=== PATIENT | female | born 1965 | race Caucasian/White ===

== ENCOUNTER → 2019-11-15 14:13 | Outpatient (BNVA) | payer BC, SELFPAY | PROVIDERS: Family Provider Nurse Practitioner; PCP Nurse Practitioner; Visit Provider Nurse Practitioner Family | DX: M79.641 Pain in right hand (principal) | CPT/HCPCS: 73130 ==

== ENCOUNTER → 2020-03-20 10:08 | Outpatient (BNVA) | payer BC, SELFPAY | PROVIDERS: Family Provider Nurse Practitioner; PCP Nurse Practitioner; Visit Provider Nurse Practitioner | DX: I10 Essential (primary) hypertension (principal); E11.65 Type 2 diabetes mellitus with hyperglycemia; M54.16 Radiculopathy, lumbar region; M10.9 Gout, unspecified; E78.2 Mixed hyperlipidemia; H60.90 Unspecified otitis externa, unspecified ear; R42 Dizziness and giddiness | CPT/HCPCS: 81000 ==

== ENCOUNTER → 2020-04-25 14:16 | Outpatient (BNVA) | payer BC, SELFPAY | PROVIDERS: Family Provider Nurse Practitioner; PCP Nurse Practitioner; Visit Provider Nurse Practitioner | DX: Z12.4 Encounter for screening for malignant neoplasm of cervix (principal); N95.2 Postmenopausal atrophic vaginitis | CPT/HCPCS: 88175 ==

== ENCOUNTER → 2020-09-03 12:16 | Outpatient (BNVA) | payer BC, SELFPAY | PROVIDERS: Family Provider Nurse Practitioner; PCP Nurse Practitioner; Visit Provider Nurse Practitioner | DX: Z11.59 Encounter for screening for other viral diseases (principal); J40 Bronchitis, not specified as acute or chronic | CPT/HCPCS: 87635 ==

== ENCOUNTER 2020-09-06 10:11 | Inpatient (IN) | payer BC, SELFPAY ==
[2020-09-06] VITALS (39 sets, daily range): BP systolic 121–156; BP diastolic 62–106; PULSE 100–121; RESP 15–39; TEMP 36.6–38.5; O2SAT 88–98; BMI 47.8
--- NOTE | 2020-09-06 10:28 | ECG_ITS ---
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
--- NOTE | 2020-09-06 10:28 | XRR_ITS ---
PROCEDURE INFORMATION: Exam: XR Chest, 1 View Exam date and time: 09/06/2020 10:30 AM Age: 54 years old Clinical indication: Shortness of breath; Additional info: SOB TECHNIQUE: Imaging protocol: XR of the chest Views: 1 view. COMPARISON: No relevant prior studies available. FINDINGS: Lungs: Moderate nonspecific bilateral pulmonary opacities most consistent with pneumonia. Pleural space: Unremarkable. No pleural effusion. No pneumothorax. Heart/Mediastinum: Unremarkable. No cardiomegaly. Bones/joints: Unremarkable. Other findings: Possible morbid obesity. XR/XR chest 1V portable [id number] IMPRESSION: Moderate nonspecific bilateral pulmonary opacities most consistent with pneumonia.
--- NOTE | 2020-09-06 10:31 | ED_ITS ---
HPI - COVID General: Chief Complaint: COVID symptoms Stated Complaint: COVID + / Experiencing all symptoms Time Seen by Provider: 09/06/20 10:14 Triage information: Has fever, cough or shortness of breath . Exposure to COVID + person last 14 days History of Present Illness: COVID 19 common symptoms: negative fever(s), chills, non-productive cough, productive cough, dyspnea, fatigue, headache(s), throat pain, nasal congestion, nausea, vomiting or diarrhea COVID 19 other sytmptoms: negative chest pain COVID Results: SARS-CoV-2 RNA (RT-PCR) Detected (NOT DETECTED) A 09/03/20 12:16 09/03/20 Review of Systems Const: Denies: fever(s), chills or fatigue Eyes: Denies: change in vision or eye discomfort ENMT: Denies: throat pain, odynophagia, nasal discharge or nasal congestion Card: Denies: chest pain, palpitations, edema, swelling of feet/ankles, dyspnea on exertion or orthopnea Resp: Denies: dyspnea, productive cough or non-productive cough GI: Denies: abdominal pain, nausea, vomiting, diarrhea, constipation or hematochezia : Denies: flank pain, dysuria or hematuria Musc: Denies: neck pain, back pain or extremity swelling Skin/Breast: Denies: rash or new lesions Neuro: Denies: headache(s), numbness in extremities or weakness in extremities PFSH ED PFSH: Medical History Controlled diabetes mellitus with hyperglycemia, without long-term current use of insulin Essential (primary) hypertension Gout Lumbar back pain with radiculopathy affecting right lower extremity Mixed hyperlipidemia Vaginitis, atrophic Surgical History History of carpal tunnel surgery right 1994 Hx of section Status post trigger finger release Right 4th finger 12/18/19 Dr. Mcgraw Family History Mother Cancer lung Brain aneurysm Father Cancer lung Other Diabetes Hypertension Social History Smoking and tobacco status: never smoked Second hand smoke exposure: No Smoking risk assessment/counseling performed?: No Alcohol intake: never Desire information about alcohol rehabilitation?: No Counseling given: No Desire information about substance/drug rehabilitation?: No Counseling given: No Adopted: No Caregiver/support person: No Lives independently: Yes Household members: spouse Housing: House Marital status: Number of children: 2 service: No Current occupational status: employed 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 and animals: Yes Pets & animals: dog(s) History of recent travel: No Current gender identity: Female Female Reproductive History: Para: 2 Physical Exam Const: COMMON NORMALS: patient oriented x3 HENMT: COMMON NORMALS: normocephalic HEAD & SCALP: normocephalic MOUTH: Normal oral and palatal mucosa present THROAT: posterior oropharynx normal and uvula midline Neck/C-Spine: COMMON NORMALS: supple GENERAL: Yes normal visual inspection Resp: COMMON NORMALS: normal respiratory effort, No retractions, No use of accessory muscles and clear to auscultation bilaterally AUSCULTATION: clear to auscultation bilaterally Cardio: COMMON NORMALS: regular rate, regular rhythm, S1 normal heart sound present, S2 normal heart sound present, No gallops present (Cardio), No clicks present (Cardio), No murmurs present (Cardio) and Peripheral pulses 2+ throughout RATE: regular rate RHYTHM: regular rhythm HEART SOUNDS: S1 normal heart sound present and S2 normal heart sound present PERIPHERAL PULSES: Peripheral pulses 2+ throughout GI: COMMON NORMALS: Normal to inspection, nondistended, normoactive bowel sounds present, Soft to palpation, non-tender and no masses PALPATION: Yes Soft to palpation : COMMON NORMALS: Yes no CVA tenderness BLADDER/KIDNEY EXAM: Yes no CVA tenderness Back/Pelvis: COMMON NORMALS: no CVA tenderness Neuro: COMMON NORMALS: patient oriented x3 and moves all extremities Course Vital Signs: Vital signs: Vital Signs Temperature 100.6 F H 09/06/20 10:22 Pulse Rate 113 H 09/06/20 10:22 Respiratory Rate 26 H 09/06/20 10:22 Blood Pressure 123/67 09/06/20 10:22 Pulse Oximetry 88 L 09/06/20 10:22 MDM - COVID Lab Data COVID Results: SARS-CoV-2 RNA (RT-PCR) Detected (NOT DETECTED) A 09/03/20 12:16 09/03/20 Discharge Plan Discharge Prescriptions: No Action magnesium 250 mg tablet 250 mg PO ONCE RF: 0 arnicare PO RF: 0 potassium PO RF: 0 cholecalciferol (vitamin D3) 5,000 unit capsule 5,000 unit PO ONCE RF: 0 diclofenac sodium [Voltaren] 1 % gel 2 gm TOPICAL TID PRNRF: 0 estriol 10 % cream as directed RF: 0 allopurinol 300 mg tablet 300 mg PO DAILY Qty: 30 RF: 2 clonidine HCl 0.1 mg tablet 0.1 mg PO Q12H PRN (Reason: hypertensive emergency) Qty: 60 RF: 2 fenofibrate nanocrystallized [Tricor] 145 mg tablet 145 mg PO DAILY Qty: 30 RF: 2 tramadol 50 mg tablet 50 mg PO Q6H PRN (Reason: pain) Qty: 60 RF: 2 zlsiwdco-ucidepqsv-VF 3.5-10,000-1 mg/mL-unit/mL-% drops,suspension 4 drop EAR-BOTH TID 10 Days Qty: 10 RF: 0 meclizine 25 mg tablet 25 mg PO BID PRN (Reason: dizziness) Qty: 60 RF: 0 cephalexin [Keflex] 500 mg capsule 500 mg PO TID Qty: 30 RF: 0 (DME) nebulizers Misc See Rx Instructions .ROUTE .MEDSUPPLY Qty: 1 RF: 0 albuterol sulfate 2.5 mg /3 mL (0.083 %) solution for nebulization 2.5 mg INHALATION Q4H PRN (Reason: shortness of breath or wheezing) Qty: 75 RF: 0 budesonide [Pulmicort] 0.5 mg/2 mL suspension for nebulization 0.5 mg INHALATION BID Qty: 120 RF: 0 estradiol 0.01 % (0.1 mg/gram) cream 1 gm VAGINAL DAILY Qty: 42.5 RF: 0 cyclobenzaprine 5 mg tablet 5 mg PO TID PRN (Reason: muscle spasm) Qty: 90 RF: 2 promethazine-DM 6.25-15 mg/5 mL syrup 5 ml PO Q6H PRN (Reason: cough) Qty: 120 RF: 0 acyclovir 800 mg tablet 800 mg PO TID Qty: 30 RF: 0 terconazole 0.8 % cream 1 appful VAGINAL .at bedtime Qty: 20 RF: 0 metformin 500 mg tablet extended release 24hr 1,000 mg PO BID Qty: 360 RF: 0 glipizide 10 mg tablet extended release 24hr 10 mg PO DAILY Qty: 30 RF: 2 Byetta 10 mcg/dose(250 mcg/mL) 2.4 mL pen injector 10 mcg SUBCUT BID Qty: 4.8 RF: 0 irbesartan 150 mg tablet 150 mg PO DAILY Qty: 30 RF: 2 fluconazole [Diflucan] 150 mg tablet 150 mg PO DAILY Qty: 1 RF: 0 gabapentin 600 mg tablet 300 mg PO BID Qty: 30 RF: 1 furosemide 20 mg tablet 20 mg PO DAILY Qty: 30 RF: 2 amlodipine 5 mg tablet 5 mg PO DAILY Qty: 30 RF: 2 albuterol sulfate [Proventil HFA] 90 mcg/actuation HFA aerosol inhaler 2 puff INHALATION Q6H PRN (Reason: shortness of breath or wheezing) Qty: 18 RF: 0 Coding Level of Care Code ED Autism Motor 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
--- NOTE | 2020-09-06 10:44 | ED_ITS ---
HPI - COVID General: Chief Complaint: COVID symptoms Stated Complaint: COVID + / Experiencing all symptoms Time Seen by Provider: 09/06/20 10:14 Triage information: Has fever, cough or shortness of breath . Exposure to COVID + person last 14 days History of Present Illness: HPI Narrative: This patient is a 54-year-old female who comes in today with Covid. She became symptomatic on 08/27. She had a positive test on 09/03. She and her family traveled to [facility] the weekend before her symptoms started. Her grandson started having symptoms on Tuesday and was sent home from school because of it. Her son became sick on Tuesday. They have also tested positive. The patient's comorbidities include diabetes, type II, hypertension, obesity. She was sent in today by her primary care provider, Peggy Blankenship, because her oxygen saturations were 85% at home. She feels like she continues to worsen. She has had some diarrhea. Nausea but no vomiting. She has a poor appetite but has been drinking plenty of water. She was seen in the office on the and given inhalers. One was a steroid that she uses twice a day and 1 was a albuterol inhaler that she uses as needed every 4 hours. She said they are not helping. She is not a smoker. She denies any history of lung or heart problems. MD complaint: known COVID positive Prior covid testing: yes, results known Prior testing date: 09/03/20 COVID 19 common symptoms: positive fever(s), chills, cough, non-productive coug h, dyspnea, fatigue, body aches, loss of sense of smell and/or taste, nausea and diarrhea; negative headache(s) COVID 19 other sytmptoms: negative chest pain Onset (ago): day(s) (10) Severity: moderate Pertinent comorbid conditions: diabetes, hypertension and obesity Treatment prior to arrival: aspirin and breathing treatments COVID Results: SARS-CoV-2 RNA (RT-PCR) Detected (NOT DETECTED) A 09/03/20 12:16 09/03/20 Review of Systems General: Reports: 10 or more systems reviewed and unremarkable except in HPI and below Const: Reports: fever(s), chills, body aches and fatigue Eyes: Denies: change in vision ENMT: Denies: odynophagia Card: Denies: chest pain or swelling of feet/ankles Resp: Reports: dyspnea and non-productive cough GI: Reports: nausea and diarrhea : Denies: flank pain or difficulty voiding Musc: Denies: neck pain or back pain Skin/Breast: Denies: rash Neuro: Denies: headache(s), numbness in extremities or weakness in extremities Larry/Lymph: Denies: easy bruising or easy bleeding PFSH ED PFSH: Medical History Controlled diabetes mellitus with hyperglycemia, without long-term current use of insulin Essential (primary) hypertension Gout Lumbar back pain with radiculopathy affecting right lower extremity Mixed hyperlipidemia Vaginitis, atrophic Surgical History History of carpal tunnel surgery right 1994 Hx of section Status post trigger finger release Right 4th finger 12/18/19 Dr. Mcgraw Family History Mother Cancer lung Brain aneurysm Father Cancer lung Other Diabetes Hypertension Social History Smoking and tobacco status: never smoked Second hand smoke exposure: No Smoking risk assessment/counseling performed?: No Alcohol intake: never Desire information about alcohol rehabilitation?: No Counseling given: No Desire information about substance/drug rehabilitation?: No Counseling given: No Adopted: No Caregiver/support person: No Lives independently: Yes Household members: spouse Housing: House Marital status: Number of children: 2 service: No Current occupational status: employed 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 and animals: 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 Pets & animals: dog(s) History of recent travel: No Current gender identity: Female Female Reproductive History: Para: 2 Physical Exam Const: COMMON NORMALS: no acute distress, patient oriented x3, no limitations and alert GENERAL APPEARANCE: cooperative HENMT: HEAD & SCALP: normal to inspection FACE & SINUS: normal facial exam Eye: GENERAL EYE: appearance normal, both eyes and all related structures Neck/C-Spine: COMMON NORMALS: supple, no meningeal signs and no JVD Chest: COMMONS NORMALS: normal inspection of the chest Resp: EFFORT & INSPECTION: Yes tachypneic and Yes uses accessory muscles AUSCULTATION: diminished lung sounds Cardio: COMMON NORMALS: no JVD, regular rate, regular rhythm and No murmurs present (Cardio) RATE: regular rate RHYTHM: regular rhythm GI: COMMON NORMALS: Normal to inspection, nondistended, normoactive bowel sounds present, Soft to palpation and non-tender INSPECTION: Yes normal to inspection AUSCULTATION: Yes normoactive bowel sounds PALPATION: Yes Soft to palpation Back/Pelvis: COMMON NORMALS: thoracic and lumbar spine normal to inspection Extremity: COMMON NORMALS: normal to inspection Neuro: COMMON NORMALS: patient oriented x3, moves all extremities, no focal motor deficits and no sensory deficits noted SENSORIUM/ORIENTATION: Yes alert MENINGEAL SIGNS: Yes no meningeal signs Psych: COMMON NORMALS: mental status grossly normal, cooperative and normal affect Skin: COMMON NORMALS: no rashes or lesions noted and turgor normal GENERAL SKIN EXAM: no rashes or lesions noted and turgor normal Course ED course: This patient remained fairly stable while in the department. Her oxygen saturations on 4 L were about 95%. She is visibly tachypneic when talking to her. She is not in any severe distress. Room air sats were low in the mid 80s. Her labs were most significant for CRP of 250.9. Her blood glucose was 306. Fibrinogen was 800. Lactate was 2.1. Her D-dimer was not markedly elevated at 0.93. Her significant comorbidities of diabetes, hyperten kandace, obesity are noted. Her chest x-ray showed significant infiltrates bilaterally. She will be admitted to the for further management, Decadron, remdesivir, VTE prophylaxis. Vital Signs: Vital signs: Vital Signs Temperature 98.9 F 09/06/20 13:13 Pulse Rate 115 H 09/06/20 13:22 Respiratory Rate 21 H 09/06/20 13:22 Blood Pressure 134/62 09/06/20 13:22 Pulse Oximetry 98 09/06/20 13:13 MDM - COVID Lab Data Result diagrams: 09/06/20 11:00 09/06/20 11:00 Labs: Lab Results 09/06/20 09/06/20 09/06/20 Range/Units 11:00 11:00 11:00 WBC 9.6 (4.0-10.0) 10^3/uL RBC 4.54 (4.1-5.3) 10^6/uL Hgb 12.0 (11.5-15.3) g/dL Hct 38.0 (37.0-47.0) % MCV 83.7 (81-99) fL MCH 26.4 L (28.0-34.0) pg MCHC 31.6 (30.0-36.0) g/dL RDW 13.9 (12.1-15.1) % Plt Count 234 (130-400) 10^3/cmm MPV 11.0 H (7.4-10.4) fL Neut % (Auto) 83.8 % Lymph % (Auto) 9.3 % Mcnairy % (Auto) 5.9 % Eos % (Auto) 0.0 % Baso % (Auto) 0.2 % Neut # (Auto) 8.07 H (1.8-7.7) 10^3/uL Lymph # (Auto) 0.9 (0.8-4.8) 10^3/uL Mcnairy # (Auto) 0.6 (0.2-0.9) 10^3/uL Eos # (Auto) 0.0 (0.0-0.8) 10^3/uL Baso # (Auto) 0.0 (0.0-0.1) 10^3/uL Nucleated RBC % (auto) 0 % Nucleated RBCs # 0.0 /100WBC Fibrinogen 800 H (174-498) mg/dL D-Dimer 0.93 H (0-0.59) ug/mIFEU Sodium 135 L (136-145) mmol/L Potassium 4.2 (3.5-5.1) mmol/L Chloride 100 (98-107) mmol/L Carbon Dioxide 19 L (22-29) mmol/L Anion Gap 20.2 H (5-19) BUN 15 (6-20) mg/dL Creatinine 0.7 (0.5-0.9) mg/dL GFR Calculation 86.6 L (90-130) mL/min Glucose 306 H (65-115) mg/dL Calculated Osmolality 292 (285-295) mOsm/kg Lactic Acid (0.5-2.2) mmol/L Calcium 8.4 L (8.5-10.5) mg/dL Ferritin 259 H (15-150) ng/mL Total Bilirubin 0.3 (0.15-1.2) mg/dL AST 20 (0-32) U/L ALT 14 (0-33) U/L Alkaline Phosphatase 74 (35-105) IU/L Troponin T Baseline (0-10) ng/L C-Reactive Protein 250.9 H (0.0-4.9) mg/L Total Protein 6.1 L (6.6-8.7) g/dL Albumin 3.3 L (3.5-5.2) g/dL Globulin 2.8 (1.3-4.6) g/dL Procalcitonin 0.16 (0-0.5) ng/mL 09/06/20 09/06/20 Range/Units 11:00 11:00 WBC (4.0-10.0) 10^3/uL RBC (4.1-5.3) 10^6/uL Hgb (11.5-15.3) g/dL Hct (37.0-47.0) % MCV (81-99) fL MCH (28.0-34.0) pg MCHC (30.0-36.0) g/dL RDW (12.1-15.1) % Plt Count (130-400) 10^3/cmm MPV (7.4-10.4) fL Neut % (Auto) % Lymph % (Auto) % Mcnairy % (Auto) % Eos % (Auto) % Baso % (Auto) % Neut # (Auto) (1.8-7.7) 10^3/uL Lymph # (Auto) (0.8-4.8) 10^3/uL Mcnairy # (Auto) (0.2-0.9) 10^3/uL Eos # (Auto) (0.0-0.8) 10^3/uL Baso # (Auto) (0.0-0.1) 10^3/uL Nucleated RBC % (auto) % Nucleated RBCs # /100WBC Fibrinogen (174-498) mg/dL D-Dimer (0-0.59) ug/mIFEU Sodium (136-145) mmol/L Potassium (3.5-5.1) mmol/L Chloride (98-107) mmol/L Carbon Dioxide (22-29) mmol/L Anion Gap (5-19) BUN (6-20) mg/dL Creatinine (0.5-0.9) mg/dL GFR Calculation (90-130) mL/min Glucose (65-115) mg/dL Calculated Osmolality (285-295) mOsm/kg Lactic Acid 2.1 (0.5-2.2) mmol/L Calcium (8.5-10.5) mg/dL Ferritin (15-150) ng/mL Total Bilirubin (0.15-1.2) mg/dL AST (0-32) U/L ALT (0-33) U/L Alkaline Phosphatase (35-105) IU/L Troponin T Baseline 7 (0-10) ng/L C-Reactive Protein (0.0-4.9) mg/L Total Protein (6.6-8.7) g/dL Albumin (3.5-5.2) g/dL Globulin (1.3-4.6) g/dL Procalcitonin (0-0.5) ng/mL COVID Results: SARS-CoV-2 RNA (RT-PCR) Detected (NOT DETECTED) A 09/03/20 12:16 09/03/20 Discharge Plan Discharge Admit Provider: Monika Acosta Coding Level of Care Code ED Control Center Operator for g Fwd Exam Comprehensive
[2020-09-06 11:09] LABS: Basophils % 0.2 %; Lymphocytes # 0.9 10^3/uL (0.8-4.8); Lymphocytes % 9.3 %; Mean Corpuscular HGB Conc 31.6 g/dL (30.0-36.0); Mean Corpuscular Hemoglobin 26.4 pg (28.0-34.0); Mean Corpuscular Volume 83.7 fL (81-99); Monocytes # 0.6 10^3/uL (0.2-0.9); Monocytes % 5.9 %; Neutrophils # 8.07 10^3/uL (1.8-7.7); Neutrophils % 83.8 %; Nucleated Red Blood Cells % 0 %; Platelet Count 234 10^3/cmm (130-400); Red Blood Count 4.54 10^6/uL (4.1-5.3); Red Cell Distribution Width 13.9 % (12.1-15.1); White Blood Count 9.6 10^3/uL (4.0-10.0)
[2020-09-06 11:40] LABS: D Dimer 0.93 ug/mIFEU (0-0.59)
[2020-09-06] MEDS: enoxaparin 60 mg/0.6 mL Syringe 50 MG SUBCUT (11:41)
[2020-09-06 11:49] LABS: Lactic Sepsis W/Reflex 2.1 mmol/L (0.5-2.2)
[2020-09-06 11:51] LABS: Troponin(5th) Baseline 7 ng/L (0-10)
[2020-09-06 11:55] LABS: Procalcitonin 0.16 ng/mL (0-0.5)
[2020-09-06 12:06] LABS: Alanine Aminotransferase 14 U/L (0-33); Albumin Level 3.3 g/dL (3.5-5.2); Alkaline Phosphatase 74 IU/L (35-105); Aspartate Amino Transferase 20 U/L (0-32); Blood Urea Nitrogen 15 mg/dL (6-20); C Reactive Protein 250.9 mg/L (0.0-4.9); Calcium 8.4 mg/dL (8.5-10.5); Carbon Dioxide 19 mmol/L (22-29); Chloride 100 mmol/L (98-107); Ferritin 259 ng/mL (15-150); Globulin 2.8 g/dL (1.3-4.6); Glomerular Filtration Rate 86.6 mL/min (90-130); Glucose 306 mg/dL (65-115); Osmolality Calculated 292 mOsm/kg (285-295); Sodium 135 mmol/L (136-145); Total Bilirubin 0.3 mg/dL (0.15-1.2); Total Protein 6.1 g/dL (6.6-8.7)
[2020-09-06 12:08] LABS: Anion Gap 20.2 (5-19); Potassium 4.2 mmol/L (3.5-5.1)
[2020-09-06 12:09] LABS: Reflex Lactate Order REFLEX LACTIC ORDERD
--- NOTE | 2020-09-06 12:28 | ECG_ITS ---
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1965 Requested By: Imtiaz Lopez Order Number: [id number] Reading MD: SABINO YODER Measurements Intervals [place] Rate: 109 P: 55 FL: 185 QRS: 18 QRSD: 92 T: 25 QT: 313 QTc: 422 Interpretive Statements SINUS TACHYCARDIA LOW QRS VOLTAGE IN PRECORDIAL LEADS [QRS DEFLECTION < 1.0 mV IN CHEST LEADS] ABNORMAL RHYTHM ECG Compared to ECG 09/06/2020 10:54:23 No significant changes Electronically Signed On 09-06-2020 18:31:49 CDT by SABINO YODER [email or web address] [email or web address] [id number]
[2020-09-06 12:34] LABS: Fibrinogen 800 mg/dL (174-498)
--- NOTE | 2020-09-06 13:19 | PC.NURSE ---
tong arriaza unable to take patient to intubation
[2020-09-06 13:29] LABS: Troponin 5 2HR 7.12 ng/L (0-10); Troponin 5 2HR Delta 0.12 ABS# (0-10)
--- NOTE | 2020-09-06 15:43 | P.HP_ITS ---
Providers/Chief Complaint Admitting Physician: Monika Acosta MD Primary Care Provider: Peggy Blankenship, FELT HAT FLANGING OPERATOR-C Chief Complaint: COVID + / Experiencing all symptoms History of Present Illness Betty Watkins is a 54 year old female with PMHx noted below, presents to the ER from PCP office due to worsening respiratory symptoms following diagnosis on 09/03 following a trip to [facility] with her family. Multiple family members have been ill following return from their trip and they were actually under quarantine per recommendations of the healthcare provider. However patient c ontinued to have significant symptoms particularly in terms of dry persistent cough, fatigue, decreased appetite and oral intake, loss of sense of taste, fever with a T-max of 102.5F. She had received some nebulizer treatments as well as steroids from her primary care provider which did not seem to improve her symptoms though she did not seem to worsen since the initiation of the treatment. She had returned for follow-up today and was referred to the ER due to continued symptoms. She is not oxygen dependent at baseline. She is currently requiring 3 to 4 L nasal cannula, noted to be tachypneic, normotensive and mildly tachycardic. She is currently afebrile. Work-up so far shows a normal white count, normal hemoglobin, normal renal function and LFTs, slight elevation in her inflammatory markers, lactic acid of 2.1, normal procalcitonin. She has already received her first dose of remdesivir and a therapeutic dose of Lovenox. Chest x-ray shows a bilateral patchy opacities consistent with viral pneumonia. She will require further treatment as she is quite ill-appearing and will be admitted to the viral ICU. I have updated patient's Harsha Watkins over the phone. Review of Systems Const: Reports: fever(s), chills, body aches, change in appetite (decreased appetite), fatigue and malaise Eyes: Denies: change in vision ENMT: Reports: dry mouth Card: Denies: chest pain, swelling of feet/ankles or lightheadedness Resp: Reports: dyspnea, non-productive cough and pain on inspiration GI: Reports: nausea and diarrhea; Denies: abdominal pain, vomiting, hematemesis or hematochezia : Reports: oliguria; Denies: difficulty voiding or dysuria Musc: Denies: back pain Skin/Breast: Denies: rash Neuro: Reports: weakness in extremities; Denies: numbness in extremities Psych: Denies: anxiety Medications/Allergies Home Medications Medication Instructions Recorded Confirmed Last Taken Type diclofenac sodium 1 % topical gel 2 gm TOPICAL TID PRN gm 11/15/19 09/06/20 Unknown History magnesium 250 mg tablet 250 mg PO BEDTIME 11/15/19 09/06/20 09/05/20 History cyclobenzaprine 5 mg tablet 5 mg PO TID PRN #90 tab 11/20/19 09/06/20 Unknown Rx allopurinol 300 mg tablet 300 mg PO DAILY #30 tab 03/20/20 09/06/20 09/06/20 Rx clonidine HCl 0.1 mg tablet 0.1 mg PO Q12H PRN #60 tab 03/20/20 09/06/20 Unknown Rx meclizine 25 mg tablet 25 mg PO BID PRN #60 tab 03/20/20 09/06/20 Unknown Rx tramadol 50 mg tablet 50 mg PO Q6H PRN #60 tab 03/20/20 09/06/20 Unknown Rx metformin 500 mg tablet,extended 1,000 mg PO BID #360 tab 06/10/20 09/06/20 09/06/20 Rx release 24hr glipizide 10 mg tablet, extended 10 mg PO DAILY #30 tab 07/03/20 09/06/20 09/06/20 Rx release 24 hr exenatide 10 mcg SUBCUT BID #4.8 ml 07/09/20 09/06/20 09/05/20 Rx irbesartan 150 mg tablet 150 mg PO DAILY #30 tab 07/09/20 09/06/20 09/06/20 Rx gabapentin 600 mg tablet 300 mg PO BID #30 tab 07/24/20 09/06/20 09/06/20 Rx furosemide 20 mg tablet 20 mg PO DAILY #30 tab 07/30/20 09/06/20 09/06/20 Rx albuterol sulfate 90 mcg/actuation 2 puff INHALATION Q6H PRN #18 gm 08/28/20 09/06/20 Unknown Rx aerosol inhaler amlodipine 5 mg tablet 5 mg PO DAILY #30 tab 08/28/20 09/06/20 09/06/20 Rx albuterol sulfate 2.5 mg INHALATION Q4H PRN #75 ml 09/03/20 09/06/2020 Rx budesonide 0.5 mg/2 mL suspension 0.5 mg INHALATION BID #120 ml 09/03/20 09/06/20 09/06/20 01:00 Rx for nebulization nebulizers #1 each 09/03/20 09/06/20 Unknown Rx Estriol-Estradiol See Rx Instructions .ROUTE .COMPLEX 09/06/20 09/06/20 Unknown History Allergies Allergy/AdvReac Type Severity Reaction Status Date / Time lisinopril Allergy cough Verified 09/06/20 12:14 Penicillins Allergy rash Verified 09/06/20 12:14 Sulfa (Sulfonamide Allergy nausea Verified 09/06/20 12:14 Antibiotics) Tetanus Vaccines and Toxoid Allergy swelling Verified 09/06/20 12:14 PFSH Acute PFSH: Medical History (Updated 09/06/20 @ 16:19 by Monika Acosta MD) Controlled diabetes mellitus with hyperglycemia, without long-term current use of insulin Essential (primary) hypertension Gout Lumbar back pain with radiculopathy affecting right lower extremity Mixed hyperlipidemia Morbid obesity Vaginitis, atrophic Surgical History History of carpal tunnel surgery right 1994 Hx of section Status post trigger finger release Right 4th finger 12/18/19 Dr. Mcgraw Family History Mother Cancer lung Brain aneurysm Father Cancer lung Grandfather Diabetes Other CAD (coronary artery disease) Hypertension Social History Smoking and tobacco status: never smoked Second hand smoke exposure: No Smoking risk assessment/counseling performed?: No Alcohol intake: never Desire information about alcohol rehabilitation?: No Counseling given: No Desire information about substance/drug rehabilitation?: No Counseling given: No Adopted: No Caregiver/support person: No Lives independently: Yes Household members: spouse Housing: House Marital status: Number of children: 2 service: No Current occupational status: employed 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 and animals: Yes Pets & animals: dog(s) History of recent travel: No Current gender identity: Female Female Reproductive History: Para: 2 Vitals/I&O/Wt Last Vital Signs Temp 98 F 09/06/20 14:50 Pulse 119 H 09/06/20 15:40 Resp 21 H 09/06/20 15:35 BP 129/88 09/06/20 15:35 Pulse Ox 94 09/06/20 15:40 Weight last 48 hrs Weight 111.13 kg Physical Exam Const: COMMON NORMALS: no acute distress, patient oriented x3 and alert GENERAL APPEARANCE: cooperative, comfortable and ill appearing NUTRITIONAL APPEARANCE: obese morbidly obese ORIENTATION/CONSCIOUSNESS: Yes awake HENMT: COMMON NORMALS: normocephalic, atraumatic, hearing grossly normal bilaterally and moist oral mucous membranes HEAD & SCALP: normocephalic and atraumatic Eye: COMMON NORMALS: Equal, round and reactive pupils present, EOMs intact bilaterally and conjunctivae normal CONJUNCTIVA: Yes conjunctivae normal PUPIL: Yes Equal, round and reactive pupils present Neck/C-Spine: COMMON NORMALS: full ROM GENERAL: Yes normal visual inspection and Yes trachea midline Resp: COMMON NORMALS: normal respiratory effort, No retractions and No use of accessory muscles EFFORT & INSPECTION: Yes able to speak in complete sent ences, Yes symmetric chest movement, Yes tachypneic, Yes Actively coughing dry and Yes audible wheezes AUSCULTATION: rhonchi and diminished lung sounds OTHER: -on 3-4 L NC Cardio: COMMON NORMALS: regular rhythm, S1 normal heart sound present, S2 normal heart sound present and No murmurs present (Cardio) RATE: tachycardic RHYTHM: regular rhythm HEART SOUNDS: S1 normal heart sound present and S2 normal heart sound present GI: COMMON NORMALS: Normal to inspection, nondistended, normoactive bowel sounds present, Soft to palpation and non-tender INSPECTION: Yes central obesity PALPATION: Yes Soft to palpation Extremity: COMMON NORMALS: normal to inspection, full ROM and no clubbing, cyanosis or edema; negative for no pedal edema Neuro: COMMON NORMALS: patient oriented x3, moves all extremities, no focal motor deficits, no sensory deficits noted and gait normal Psych: COMMON NORMALS: mental status grossly normal, Normal thought process present, cooperative, normal affect and speech normal SPEECH: Yes normal speech THOUGHT PROCESS: Normal thought process present Skin: COMMON NORMALS: no rashes or lesions noted, no jaundice, no petechiae and no mottling GENERAL SKIN EXAM: no rashes or lesions noted Data : 09/06/20 11:00 09/06/20 11:00 A&P Assessment and plan (1) Pneumonia due to COVID-19 virus: -Initially tested positive for COVID-19 infection on 09/03, has had worsening symptoms since then. Exposed during travel with family to [place] -noted evidence of bilateral pneumonia on imaging -noted elevation of inflammatory markers; trend -received first dose of remdesevir, continue this -IV steroids, antitussives and breathing treatments as needed, zinc, vitamin C, empiric antibiotics -currently requiring supplemental oxygen, wean as tolerated -close monitoring of respiratory status -monitor vital signs -telemetry monitoring Status: Acute (2) Controlled diabetes mellitus with hyperglycemia, without long-term current use of insulin: -check A1c -Accucheks, ISS -consistent carb diet as tolerated -hypoglycemic precautions -hold oral hypoglycemic agents Status: Chronic Qualifiers: Diabetes mellitus type: type 2 Qualified Code(s): E11.65 - Type 2 diabetes mellitus with hyperglycemia (3) Essential (primary) hypertension: -monitor vital signs -resume oral antihypertensives Status: Chronic (4) Gout: -resume allopurinol Status: Chronic Qualifiers: Gout site: unspecified site Gout etiology: unspecified cause Chronicity: chronic Presence of tophus: without tophus Qualified Code(s): M1A.9XX0 - Chronic gout, unspecified, without tophus (tophi) (5) Lumbar back pain with radiculopathy affecting right lower extremity: -pain control as needed -fall precautions Status: Chronic (6) Mixed hyperlipidemia: Status: Chronic (7) Morbid obesity: -BMI-48 kg/m2 Status: Acute Additional A&P Information -consistent carb diet as tolerated -GI ppx with famotidine -DVT ppx with lovenox -Dispo: home -Code status: FULL code -Admit to [facility] Medical Necessity Statement*: Betty Zonia Watkins's hospital stay will require greater than 2 midnights for management of COVID-19 pneumonia, currently requiring supplemental oxygen, close monitoring of respiratory status. Time Spent in Patient Care: Greater than 35 minutes (>than 50% of time spent in counselling and/or direct pt care on unit) . 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
[2020-09-06] MEDS: enoxaparin 40 mg/0.4 mL Syringe SUBCUT (16:20)
[2020-09-06] MEDS: acetaminophen 325 mg Tablet 650 MG PO ×2 (16:20→22:46)
[2020-09-06] MEDS: azithromycin 500 MG in sodium chloride 0.9% 250 ML 250 MG IV (16:21)
--- NOTE | 2020-09-06 16:28 | ECG_ITS ---
[facility] ED Test Date: 2020-09-06 Pat Name: Betty Watkins Department: Room: ICU19 Gender: Female Sample Wrapper: : 1965 Requested By: Imtiaz Lopez Order Number: [id number] Cosmo MD: Lindsay Freed M.D. Measurements Intervals [place] Rate: 89 P: 39 FL: 185 QRS: 34 QRSD: 72 T: 37 QT: 288 QTc: 351 Interpretive Statements SINUS RHYTHM WITH MARKED SINUS ARRHYTHMIA LOW QRS VOLTAGE IN PRECORDIAL LEADS [QRS DEFLECTION < 1.0 mV IN CHEST LEADS] ST ELEVATION, CONSIDER ANTERIOR INJURY ST ELEVATION, CONSIDER INFERIOR INJURY Compared to ECG 09/06/2020 12:53:47 ST (T wave) deviation now present Myocardial infarct finding now present Sinus tachycardia no longer present Electronically Signed On 09-10-2020 22:42:41 UPHOLSTERY TRIMMER by Lindsya Freed M.D. [id number]
[2020-09-06 16:35] LABS: Glucose Point of Care 221 mg/dL (70-110)
[2020-09-06] MEDS: allopurinol 300 mg Tablet PO (16:41)
[2020-09-06] MEDS: famotidine 20 mg/2 mL INJ IVP (16:41)
[2020-09-06] MEDS: gabapentin 300 mg Capsule PO (17:11)
--- NOTE | 2020-09-06 17:20 | PC.NURSE ---
lovenox given by marlene in er prior
[2020-09-06 18:29] LABS: Troponin 5 6HR 9.16 ng/L (0-10); Troponin 5 6HR Delta 2.16 ng/L (0-12)
[2020-09-06 19:16] LABS: Lactic Acid level (Lactate) 1.4 mmol/L (0.5-2.2)
[2020-09-06 19:23] LABS: Influenza A by IFA Negative (Negative)
[2020-09-06 19:24] LABS: Influenza B by IFA Negative (Negative)
[2020-09-06 20:59] LABS: Glucose Point of Care 99 mg/dL (70-110)
[2020-09-06] MEDS: benzonatate 100 mg Capsule 200 MG PO (21:02)
[2020-09-06] MEDS: TRAMadol 50 mg Tablet PO (22:50)
[2020-09-06] MEDS: guaiFENesin-dextromethorphan UDC 10 mL PO (22:50)
[2020-09-07] VITALS (35 sets, daily range): BP systolic 89–136; BP diastolic 53–94; PULSE 84–101; RESP 16–43; TEMP 36.6–37.6; O2SAT 90–98
[2020-09-07] MEDS: famotidine 20 mg/2 mL INJ IVP ×2 (03:28→17:58)
[2020-09-07 04:03] LABS: Basophils % 0.3 %; Eosinophils % 0.3 %; Hematocrit 36.4 % (37.0-47.0); Hemoglobin 11.1 g/dL (11.5-15.3); Lymphocytes # 1.4 10^3/uL (0.8-4.8); Lymphocytes % 17.8 %; Mean Corpuscular HGB Conc 30.5 g/dL (30.0-36.0); Mean Corpuscular Hemoglobin 26.4 pg (28.0-34.0); Mean Corpuscular Volume 86.7 fL (81-99); Mean Platelet Volume 10.9 fL (7.4-10.4); Monocytes # 0.6 10^3/uL (0.2-0.9); Monocytes % 7.3 %; Neutrophils # 5.88 10^3/uL (1.8-7.7); Neutrophils % 73.5 %; Nucleated Red Blood Cells % 0 %; Platelet Count 252 10^3/cmm (130-400); Red Cell Distribution Width 14.1 % (12.1-15.1)
[2020-09-07 04:35] LABS: Blood Urea Nitrogen 16 mg/dL (6-20); Calcium 8.2 mg/dL (8.5-10.5); Carbon Dioxide 24 mmol/L (22-29); Chloride 103 mmol/L (98-107); Glomerular Filtration Rate 74.2 mL/min (90-130); Glucose 146 mg/dL (65-115); Osmolality Calculated 290 mOsm/kg (285-295); Sodium 138 mmol/L (136-145)
[2020-09-07 04:36] LABS: Fibrinogen 778 mg/dL (174-498)
[2020-09-07 04:39] LABS: D Dimer 0.83 ug/mIFEU (0-0.59)
[2020-09-07 04:41] LABS: C Reactive Protein 216.9 mg/L (0.0-4.9); Creatine Phosphokinase 209 U/L (26-192)
[2020-09-07 04:47] LABS: Anion Gap 15.6 (5-19); Potassium 4.6 mmol/L (3.5-5.1)
[2020-09-07 04:51] LABS: Ferritin 281 ng/mL (15-150); NT Pro B Type Natriuretic Pept 74 pg/mL (0-125)
[2020-09-07 05:16] LABS: Lactate Dehydrogenase 278 U/L (135-214)
[2020-09-07 05:35] LABS: Estmated Average Glucose 243; Hemoglobin A1C 10.1 % (4.0-6.0)
[2020-09-07 07:40] LABS: Glucose Point of Care 176 mg/dL (70-110)
[2020-09-07] MEDS: FUROsemide 40 mg Tablet 20 MG PO (08:10)
[2020-09-07] MEDS: amlodipine 10 mg Tablet 5 MG PO (08:10)
[2020-09-07] MEDS: zinc gluconate 50 mg Tablet PO (08:10)
[2020-09-07] MEDS: losartan 50 mg Tablet PO (08:10)
[2020-09-07] MEDS: ascorbic acid 500 mg Tablet PO (08:10)
[2020-09-07] MEDS: gabapentin 300 mg Capsule PO ×2 (08:11→17:18)
[2020-09-07] MEDS: albuterol 8 gm MDI 2 PUFF INHALATION ×2 (08:26→15:25)
[2020-09-07] MEDS: benzonatate 100 mg Capsule 200 MG PO ×3 (08:36→22:22)
--- NOTE | 2020-09-07 08:50 | P.PN_ITS ---
Subjective Subjective: Interval history: Slight increase in oxygen requirement, currently on 4 L nasal cannula, hemodynamically stable today, febrile yesterday with a T- max of 101.3 F, currently afebrile. Improving inflammatory markers, on day 2 of remdesivir. Resting quietly in bed, no overt distress, reports feeling somewhat better today, voiding independently in bedside commode. Overall, looks better today. Medications: Reviewed: Yes Medication Review Details: Active Medications Generic Name Dose Route Start Last Admin Trade Name Freq PRN Reason Stop Dose Admin Acetaminophen 650 mg 09/06/20 15:45 09/06/20 22:46 Tylenol PO 650 mg Q6H PRN Administration MILD PAIN OR INCR EASE TEMP Albuterol Sulfate 2 puff 09/06/20 15:55 09/07/20 08:26 Ventolin INHALATION 2 puff Q4H.RESPIRATORY P RN Administration SHORTNESS OF BRIAN TH Allopurinol 300 mg 09/07/20 09:00 09/06/20 16:41 Zyloprim PO 300 mg DAILY NEHEMIAS Administration Amlodipine Besylat e 5 mg 09/07/20 09:00 09/07/20 08:10 Norvasc PO 5 mg DAILY NEHEMIAS Administration Ascorbic Acid 500 mg 09/07/20 09:00 09/07/20 08:10 Vitamin C PO 500 mg DAILY NEHEMIAS Administration Benzonatate 200 mg 09/06/20 16:25 09/07/20 08:36 Tessalon Pearls PO 200 mg TID PRN Administration COUGH Cyclobenzaprine HC l 5 mg 09/06/20 16:02 Flexeril PO TID PRN muscle spasm Dextrose 25 ml 09/06/20 15:52 D50w IVP ONCE PRN hypoglycemia prot ocol Protocol Dextrose 50 ml 09/06/20 15:52 D50w IVP PRN PRN hypoglycemia prot ocol Protocol Diclofenac Sodium 1 applic 09/06/20 15:53 Voltaren TOPICAL TID PRN mild pain Enoxaparin Sodium 40 mg 09/06/20 16:00 09/06/20 17:20 Lovenox SUBCUT Not Given Q24H NEHEMIAS Famotidine 20 mg 09/06/20 16:00 09/07/20 03:28 Pepcid Inj IVP 20 mg Q12H NEHEMIAS Administration Furosemide 20 mg 09/07/20 09:00 09/07/20 08:10 Lasix PO 20 mg DAILY NEHEMIAS Administration Gabapentin 300 mg 09/06/20 18:00 09/07/20 08:11 Neurontin PO 300 mg BID NEHEMIAS Administration Glucagon 1 mg 09/06/20 15:52 Glucagen IM ONCE PRN Adult Acute Hypog lycemia Prot. Protocol Guaifenesin/Dextro methorphan 10 ml 09/06/20 16:25 09/06/20 22:50 Robitussin Dm Or al Liq PO 10 ml Q4H PRN Administration COUGH remdesivir (EUA) 1 00 mg/ 100 mls @ 100 mls /hr 09/07/20 11:30 Sodium Chloride IV 09/10/20 12:29 Q24H NEHEMIAS Azithromycin 500 m g/ Sodium 250 mls @ 250 mls /hr 09/06/20 17:00 09/06/20 16:21 Chloride IV 250 mls/hr Q24H NEHEMIAS Administration Protocol Dextrose 500 mls @ 100 mls /hr 09/06/20 15:52 D5w IV ONCE PRN Adult Acute Hypog lycemia Prot Protocol Insulin Aspart 0 unit 09/06/20 18:00 09/07/20 08:09 Novolog SUBCUT 4 unit WM&BEDTIME NEHEMIAS Administration Protocol Losartan Potassium 50 mg 09/07/20 09:00 09/07/20 08:10 Cozaar PO 50 mg DAILY NEHEMIAS Administration Meclizine HCl 25 mg 09/06/20 15:53 Antivert PO BID PRN dizziness Morphine Sulfate 2 mg 09/06/20 15:45 Morphine IVP Q4H PRN SEVERE PAIN Non-Formulary Medi cation 250 mg 09/06/20 21:00 Magnesium PO BEDTIME NEHEMIAS Ondansetron HCl 4 mg 09/06/20 15:45 Zofran IVP Q6H PRN NAUSEA AND VOMITI NG Tramadol HCl 50 mg 09/06/20 15:53 09/06/20 22:50 Ultram PO 50 mg Q6H PRN Administration mild to moderate pain Zinc Gluconate 50 mg 09/07/20 09:00 09/07/20 08:10 Zinc Gluconate PO 50 mg DAILY NEHEMIAS Administration lisinopril Allergy (Verified 09/06/20 12:14) cough Penicillins Allergy (Verified 09/06/20 12:14) rash Sulfa (Sulfonamide Antibiotics) Allergy (Verified 10/31/20 12:14) nausea Tetanus Vaccines and Toxoid Allergy (Verified 09/06/20 12:14) swelling Vitals/I&O/Wt Last Vital Signs Temp 97.9 F 09/07/20 04:00 Pulse 93 09/07/20 08:22 Resp 18 09/07/20 08:22 BP 113/76 09/07/20 08:10 Pulse Ox 95 09/07/20 08:22 09/06/20 09/07/20 09/07/20 23:59 06:59 14:59 Intake Total Balance Weight last 48 hrs Weight 111.13 kg Physical Exam Const: COMMON NORMALS: no acute distress, patient oriented x3 and alert GENERAL APPEARANCE: cooperative, comfortable and ill appearing (though less so today) NUTRITIONAL APPEARANCE: obese morbidly obese ORIENTATION/CONSCIOUSNESS: Yes awake HENMT: COMMON NORMALS: normocephalic, atraumatic, hearing grossly normal bilaterally and moist oral mucous membranes HEAD & SCALP: normocephalic and atraumatic Eye: COMMON NORMALS: Equal, round and reactive pupils present, EOMs intact bilaterally and conjunctivae normal CONJUNCTIVA: Yes conjunctivae normal PUPIL: Yes Equal, round and reactive pupils present Neck/C-Spine: COMMON NORMALS: full ROM GENERAL: Yes normal visual inspection and Yes trachea midline Resp: COMMON NORMALS: normal respiratory effort, No retractions and No use of accessory muscles EFFORT & INSPECTION: Yes able to speak in complete sentences, Yes symmetric chest movement, Yes tachypneic, Yes Actively coughing (less persistent) dry and Yes audible wheezes AUSCULTATION: rhonchi and diminished lung sounds OTHER: -on 4 L NC Cardio: COMMON NORMALS: regular rhythm, S1 normal heart sound present, S2 normal heart sound present and No murmurs present (Cardio) RATE: tachycardic RHYTHM: regular rhythm HEART SOUNDS: S1 normal heart sound present and S2 normal heart sound present GI: COMMON NORMALS: Normal to inspection, nondistended, normoactive bowel sounds present, Soft to palpation and non-tender INSPECTION: Yes central obesity PALPATION: Yes Soft to palpation Extremity: COMMON NORMALS: normal to inspection, full ROM and no clubbing, cyanosis or edema; negative for no pedal edema Neuro: COMMON NORMALS: patient oriented x3, moves all extremities, no focal motor deficits, no sensory deficits noted and gait normal (though generally quite weak) SENSORIUM/ORIENTATION: Yes alert Psych: COMMON NORMALS: mental status grossly normal, Normal thought process present, cooperative, normal affect and speech normal SPEECH: Yes normal speech THOUGHT PROCESS: Normal thought process present Skin: COMMON NORMALS: no rashes or lesions noted, no jaundice, no petechiae and no mottling GENERAL SKIN EXAM: no rashes or lesions noted Data : 09/07/20 03:45 09/07/20 03:45 Micro: Microbiology 09/06/20 23:00 Gram Stain - Final Sputum - Expectorated Sputum 09/06/20 17:50 Blood Culture - Preliminary Blood SPECIMEN COLLECTED 09/06/20 11:00 Blood Culture - Preliminary Blood SPECIMEN COLLECTED A&P Assessment and plan (1) Pneumonia due to COVID-19 virus: -Initially tested positive for COVID-19 infection on 09/03, has had worsening symptoms since then. Exposed during travel with family to [facility] -noted evidence of bilateral pneumonia on imaging -noted elevation of inflammatory markers; trending down -on day 2 of remdesevir -IV steroids, antitussives and breathing treatments as needed, zinc, vitamin C, empiric antibiotics -currently requiring supplemental oxygen, wean as tolerated -close monitoring of respiratory status -continue to monitor vital signs -telemetry monitoring -blood cx pending, sputum cx pending, not good sample based on presence of epithelial cells, noted GPC on gram stain Status: Acute (2) Non-insulin dependent diabetes mellitus: -A1c-10.1; no longer well controlled DM -Accucheks, ISS -consistent carb diet as tolerated -hypoglycemic precautions; anticipate increased hyperglycemia with steroids -hold oral hypoglycemic agents Status: Chronic (3) Essential (primary) hypertension: -continue to monitor vital signs -continue oral antihypertensives Status: Chronic (4) Gout: -continue allopurinol Status: Chronic Qualifiers: Chronicity: chronic Gout etiology: unspecified cause Gout site: unspecified site Presence of tophus: without tophus Qualified Code(s): M1A.9XX0 - Chronic gout, unspecified, without tophus (tophi) (5) Lumbar back pain with radiculopathy affecting right lower extremity: -pain control as needed -fall precautions Status: Chronic (6) Mixed hyperlipidemia: Status: Chronic (7) Morbid obesity: -BMI-48 kg/m2 Status: Acute Additional A&P Information -consistent carb diet as tolerated -GI ppx with famotidine -DVT ppx with lovenox -Dispo: home -Code status: FULL code Attestations Medical Necessity Statement*: Patient requires hospitalization for continued management of COVID-19 pneumonia, increasing oxygen requirement. Time Spent in Patient Care: 16 - 35 minutes (>than 50% of time spent in counselling and/or direct pt care on unit) . 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
[2020-09-07 12:04] LABS: Glucose Point of Care 183 mg/dL (70-110)
[2020-09-07] MEDS: guaiFENesin-dextromethorphan UDC 10 mL PO (12:26)
--- NOTE | 2020-09-07 14:20 | PC.NURSE ---
Report gvein to JOHN Dinh. Pt's cough is more intermittent now. She has had Tessalon Pearls once and Robitussin Dm once . Her lungs are clear and diminished. Dr Walters just in her room, pt stated she felt much better , still a little tired. Pt up to [facility] to urinate. BM x1 noted today.
[2020-09-07] MEDS: enoxaparin 40 mg/0.4 mL Syringe SUBCUT (15:23)
[2020-09-07] MEDS: azithromycin 500 MG in sodium chloride 0.9% 250 ML 250 MG IV (15:23)
[2020-09-07] MEDS: diclofenac 1% Topical Gel 100 gm 1 APPLIC TOPICAL (15:24)
[2020-09-07 16:46] LABS: Glucose Point of Care 156 mg/dL (70-110)
[2020-09-07 21:15] LABS: Glucose Point of Care 120 mg/dL (70-110)
[2020-09-07 21:15] LABS: Glucose Point of Care 138 mg/dL (70-110)
[2020-09-08] VITALS (32 sets, daily range): BP systolic 101–136; BP diastolic 61–93; PULSE 73–102; RESP 17–40; TEMP 36.6–36.9; O2SAT 91–98
--- NOTE | 2020-09-08 00:05 | PC.NURSE ---
CHANGE OF SHIFT Upon doing initial assessment, patient on 3.5 L oxygen via nasal cannula. Patient does have persistent hacking cough, Tessalon pearls given. Patient resting quietly in bed at this time.
[2020-09-08 04:13] LABS: Glucose Point of Care 114 mg/dL (70-110)
--- NOTE | 2020-09-08 04:21 | PC.NURSE ---
COLD/CLAMMY Patient was complaining of being cold and clammy. Nurse covered patient up with another blanket. Temperature of 98.7 and blood sugar of 117. Will continue to monitor.
[2020-09-08 04:40] LABS: Fibrinogen 656 mg/dL (174-498)
[2020-09-08] MEDS: famotidine 20 mg/2 mL INJ IVP ×2 (04:41→17:11)
[2020-09-08 04:42] LABS: Anion Gap 14.6 (5-19); Blood Urea Nitrogen 15 mg/dL (6-20); C Reactive Protein 110.5 mg/L (0.0-4.9); Calcium 8.4 mg/dL (8.5-10.5); Carbon Dioxide 24 mmol/L (22-29); Chloride 103 mmol/L (98-107); Creatine Phosphokinase 113 U/L (26-192); Ferritin 363 ng/mL (15-150); Glomerular Filtration Rate 127.6 mL/min (90-130); Glucose 111 mg/dL (65-115); Lactate Dehydrogenase 255 U/L (135-214); Osmolality Calculated 288 mOsm/kg (285-295); Potassium 3.6 mmol/L (3.5-5.1); Sodium 138 mmol/L (136-145)
[2020-09-08 04:48] LABS: D Dimer 0.85 ug/mIFEU (0-0.59)
[2020-09-08] MEDS: albuterol 8 gm MDI 2 PUFF INHALATION ×3 (07:57→17:00)
[2020-09-08] MEDS: FUROsemide 40 mg Tablet 20 MG PO (09:34)
[2020-09-08] MEDS: diclofenac 1% Topical Gel 100 gm 1 APPLIC TOPICAL (09:35)
[2020-09-08] MEDS: morphine 4 mg/mL SDV 1 mL 2 MG IVP (09:35)
[2020-09-08] MEDS: losartan 50 mg Tablet PO (09:36)
[2020-09-08] MEDS: guaiFENesin-dextromethorphan UDC 10 mL PO ×2 (09:37→23:48)
[2020-09-08] MEDS: benzonatate 100 mg Capsule 200 MG PO (09:37)
[2020-09-08] MEDS: TRAMadol 50 mg Tablet PO (09:38)
[2020-09-08] MEDS: gabapentin 300 mg Capsule PO ×2 (09:39→17:15)
[2020-09-08] MEDS: zinc gluconate 50 mg Tablet PO (09:39)
[2020-09-08] MEDS: allopurinol 300 mg Tablet PO (09:40)
[2020-09-08] MEDS: ascorbic acid 500 mg Tablet PO (09:42)
[2020-09-08] MEDS: amlodipine 10 mg Tablet 5 MG PO (09:42)
--- NOTE | 2020-09-08 11:52 | P.PN_ITS ---
Subjective Subjective: Interval history: She is still having intermittent cough. Says that it is productive. Denies any chest pain or pressure. Denies any Headache. No vomiting. Has had diarrhea, although today says this may be a little bit better. No abdominal pain. Vitals/I&O/Wt Last Vital Signs Temp 97.9 F 09/08/20 10:00 Pulse 89 09/08/20 10:00 Resp 28 H 09/08/20 10:00 BP 125/93 09/08/20 10:00 Pulse Ox 92 09/08/20 10:00 09/07/20 09/08/20 09/08/20 22:59 06:59 14:59 Intake Total 400 / 1100 220 / 1320 970 / 970 Output Total 700 / 1200 Balance 400 / 600 -480 / 120 970 / 970 Weight last 48 hrs Weight 105.188 kg Physical Exam Const: COMMON NORMALS: no acute distress, patient oriented x3 and alert ORIENTATION/CONSCIOUSNESS: Yes awake OTHER: Sitting up in chair. HENMT: COMMON NORMALS: oropharynx normal Neck/C-Spine: COMMON NORMALS: no JVD Resp: COMMON NORMALS: normal respiratory effort and clear to auscultation bilaterally AUSCULTATION: clear to auscultation bilaterally and diminished lung sounds (Minimally) OTHER: Deep inspiration triggers cough. Cardio: COMMON NORMALS: no JVD, regular rhythm, S1 normal heart sound present, S2 normal heart sound present and No murmurs present (Cardio) RHYTHM: regular rhythm HEART SOUNDS: S1 normal heart sound present and S2 normal heart sound present GI: COMMON NORMALS: Normal to inspection, nondistended, normoactive bowel sounds present, Soft to palpation and non-tender PALPATION: Yes Soft to p alpation Extremity: COMMON NORMALS: no joint enlargement and no pedal edema Neuro: COMMON NORMALS: patient oriented x3 and moves all extremities SENSORIUM/ORIENTATION: Yes alert Skin: COMMON NORMALS: no rashes or lesions noted GENERAL SKIN EXAM: no rashes or lesions noted Data : 09/07/20 03:45 09/08/20 03:22 Micro: Microbiology 09/06/20 17:50 Blood Culture - Preliminary Blood NEGATIVE TO DATE 09/06/20 11:00 Blood Culture - Preliminary Blood NEGATIVE TO DATE 09/06/20 17:50 MRSA Culture - Final Nose 09/06/20 23:00 Gram Stain - Final Sputum - Expectorated Sputum A&P Assessment and plan (1) Pneumonia due to COVID-19 virus: Severe COVID-19 pneumonia. Hypoxia. Not normally on oxygen. Currently on 2 L. Appears to be showing gradual improvement, but still coughing, productive cough. Slightly diminished air entry. Decreased aeration triggers cough. We will add Decadron. Flutter valve. Continue remdesivir. Wean off oxygen as already. Diarrhea appears to be slightly better today. -Initially tested positive for COVID-19 infection on 09/03, has had worsening symptoms since then. Exposed during travel with family to [facility] -noted evidence of bilateral pneumonia on imaging inflammatory markers trending down -on day 3 of remdesevir Inhaler as needed, zinc, vitamin C, empiric antibiotic. Sputum culture pending. So far moderate gram-positive cocci in chains, rare gram-negative tony. -close monitoring of respiratory status -continue to monitor vital signs -telemetry monitoring -blood cx pending, sputum cx pending, not good sample based on presence of epithelial cells Status: Acute (2) Non-insulin dependent diabetes mellitus: -A1c-10.1; no longer well controlled DM -Accucheks, ISS -consistent carb diet as tolerated -hypoglycemic precautions; anticipate increased hyperglycemia with steroids -hold oral hypoglycemic agents Status: Chronic (3) Essential (primary) hypertension: Mostly close to goal, but could be better. -continue to monitor vital signs -continue oral antihypertensives Status: Chronic (4) Gout: -continue allopurinol Status: Chronic Qualifiers: Gout site: unspecified site Gout etiology: unspecified cause Chronicity: chronic Presence of tophus: without tophus Qualified Code(s): M1A.9XX0 - Chronic gout, unspecified, without tophus (tophi) (5) Lumbar back pain with radiculopathy affecting right lower extremity: -pain control as needed -fall precautions Status: Chronic (6) Mixed hyperlipidemia: Status: Chronic (7) Morbid obesity: -BMI-48 kg/m2 Status: Acute Additional A&P Information -consistent carb diet as tolerated -GI ppx with famotidine -DVT ppx with lovenox -Dispo: home -Code status: FULL code Attestations Medical Necessity Statement*: Continue admission for assessment management of severe COVID-19 pneumonia. Coding Level of Care Code Acute Fish And Wildlife Warden for g Fwd Diagnoses Pneumonia due to COVID-19 virus U07.1; J12.89 Non-insulin dependent diabetes mellitus Essential (primary) hypertension I10 Gout M1A.9XX0 Gout site: unspecified site Gout etiology: unspecified cause Chronicity: chronic Presence of tophus: without tophus Lumbar back pain with radiculopathy affecting right lower extremity M54.16 Mixed hyperlipidemia E78.2 Morbid obesity E66.01
[2020-09-08 11:54] LABS: Glucose Point of Care 251 mg/dL (70-110)
[2020-09-08] MEDS: dexamethasone 4 mg Tablet 6 MG PO (12:16)
[2020-09-08 16:27] LABS: Glucose Point of Care 120 mg/dL (70-110)
[2020-09-08] MEDS: azithromycin 500 MG in sodium chloride 0.9% 250 ML 250 MG IV (17:11)
[2020-09-08] MEDS: enoxaparin 40 mg/0.4 mL Syringe SUBCUT (17:11)
--- NOTE | 2020-09-08 18:20 | PC.NURSE ---
giuliana remains able to bath herself and use the bsc with min if any assistace. her sats remain mid to high 90's on 4 l nc. patient is hoping she could go home on oxygen to finish recouperating. advised her that she has some treatments here that she cant do at home . she is eating better.
[2020-09-08 20:21] LABS: Glucose Point of Care 336 mg/dL (70-110)
[2020-09-09] VITALS (21 sets, daily range): BP systolic 123–166; BP diastolic 75–101; PULSE 79–100; RESP 15–33; TEMP 36.6–36.9; O2SAT 88–98
[2020-09-09] MEDS: famotidine 20 mg/2 mL INJ IVP (04:50)
[2020-09-09] MEDS: guaiFENesin-dextromethorphan UDC 10 mL PO (04:51)
[2020-09-09 05:09] LABS: Basophils % 0.3 %; Hematocrit 39.3 % (37.0-47.0); Hemoglobin 12.3 g/dL (11.5-15.3); Lymphocytes # 0.8 10^3/uL (0.8-4.8); Lymphocytes % 13.2 %; Mean Corpuscular HGB Conc 31.3 g/dL (30.0-36.0); Mean Corpuscular Hemoglobin 26.7 pg (28.0-34.0); Mean Corpuscular Volume 85.2 fL (81-99); Mean Platelet Volume 10.8 fL (7.4-10.4); Monocytes # 0.4 10^3/uL (0.2-0.9); Monocytes % 6.2 %; Neutrophils # 4.93 10^3/uL (1.8-7.7); Neutrophils % 78.5 %; Nucleated Red Blood Cells % 0 %; Platelet Count 350 10^3/cmm (130-400); Red Blood Count 4.61 10^6/uL (4.1-5.3); Red Cell Distribution Width 13.4 % (12.1-15.1); White Blood Count 6.3 10^3/uL (4.0-10.0)
[2020-09-09 05:33] LABS: D Dimer 0.54 ug/mIFEU (0-0.59)
[2020-09-09 05:48] LABS: Alanine Aminotransferase 17 U/L (0-33); Albumin Level 2.9 g/dL (3.5-5.2); Alkaline Phosphatase 86 IU/L (35-105); Anion Gap 18.2 (5-19); Aspartate Amino Transferase 22 U/L (0-32); Blood Urea Nitrogen 21 mg/dL (6-20); C Reactive Protein 68.9 mg/L (0.0-4.9); Calcium 8.7 mg/dL (8.5-10.5); Carbon Dioxide 20 mmol/L (22-29); Chloride 101 mmol/L (98-107); Globulin 3.9 g/dL (1.3-4.6); Glomerular Filtration Rate 103.4 mL/min (90-130); Glucose 253 mg/dL (65-115); Osmolality Calculated 292 mOsm/kg (285-295); Potassium 4.2 mmol/L (3.5-5.1); Sodium 135 mmol/L (136-145); Total Bilirubin 0.3 mg/dL (0.15-1.2); Total Protein 6.8 g/dL (6.6-8.7)
[2020-09-09 05:58] LABS: Slide Review Slide Review Perform
[2020-09-09 07:29] LABS: Glucose Point of Care 238 mg/dL (70-110)
[2020-09-09] MEDS: losartan 50 mg Tablet PO (08:20)
[2020-09-09] MEDS: FUROsemide 40 mg Tablet 20 MG PO (08:24)
[2020-09-09] MEDS: ascorbic acid 500 mg Tablet PO (08:25)
[2020-09-09] MEDS: dexamethasone 4 mg Tablet 6 MG PO (08:25)
[2020-09-09] MEDS: zinc gluconate 50 mg Tablet PO (08:25)
[2020-09-09] MEDS: amlodipine 10 mg Tablet 5 MG PO (08:27)
[2020-09-09] MEDS: gabapentin 300 mg Capsule PO (08:30)
[2020-09-09] MEDS: allopurinol 300 mg Tablet PO (08:31)
[2020-09-09] MEDS: albuterol 8 gm MDI 2 PUFF INHALATION (11:00)
[2020-09-09 11:58] LABS: Glucose Point of Care 260 mg/dL (70-110)
--- NOTE | 2020-09-09 12:44 | P.DS_ITS ---
Discharge Providers Date of Admission: 09/06/20 16:41 Date of Discharge: September 09, 2020 Attending Provider at Admission: Monika Acosta MD Attending Provider at Discharge: Francis Douglass Primary Care Provider: JOSE Nugent Diagnoses at Discharge Discharge Diagnosis (1) Pneumonia due to COVID-19 virus: Status: Acute (2) Non-insulin dependent diabetes mellitus: Status: Chronic (3) Essential (primary) hypertension: Status: Chronic (4) Gout: Status: Chronic Qualifiers: Gout site: unspecified site Gout etiology: unspecified cause Chronicity: chronic Presence of tophus: without tophus Qualified Code(s): M1A.9XX0 - Chronic gout, unspecified, without tophus (tophi) (5) Lumbar back pain with radiculopathy affecting right lower extremity: Status: Chronic (6) Mixed hyperlipidemia: Status: Chronic (7) Morbid obesity: Status: Acute Reason for Visit Reason for Visit: COVID + / Experiencing all symptoms Hospital Course Discharge Summary: Very pleasant lady with history of DM 2, HTN, HLD, morbid obesity, chronic lumbar back pain, gout, other medical problems was admitted and treated for severe COVID-19 pneumonia with respiratory symptoms, diarrhea, febrile on presentation, with loss of appetite, sense of taste, with hypoxia requiring oxygen worse not normally on oxygen and without chronic lung conditions. She underwent treatment with remdesivir (4 days due to pretty rapid improvement), Decadron. Oxygen support. Breathing treatments, incentive spirometry, flutter valve, although did not tolerate this very well. Her symptoms gradually improved. Her oxygenation gradually improved, as well as her malaise has resolved. Fevers resolved. Diarrhea is resolving and appetite has been much better. She is tolerating food and drink without any problems. She has been up and making short trips in her room. Oxygen has been weaned down to 2 L today. She is feeling much better and feels ready to return home. Home oxygen evaluation is requested and oxygen will be set up for her. While in the hospital she was also noted to have worsening of diabetes with A1c of 10.1. Her glipizide dose was increased to 15 mg in addition to Byetta and Metformin. She is instructed to continue glucose monitoring as well as monitor for hypoglycemia. Please reassess and discuss with her further regarding insulin therapy if there is no improvement in glucose control after she is off steroid. Please continue follow-up and optimization regarding chronic conditions with hypertension, hyperlipidemia, morbid obesity. Please arrange telehealth visit within 48 hours if this is possible. She is otherwise instructed to isolate for another 7 days and subsequently if no further symptoms for 24 hours, no fever, improving cough, should be safe to discontinue isolation. She understands to seek medical attention in case there is return of any concerning symptoms. Physical Exam Const: COMMON NORMALS: no acute distress, patient oriented x3 and alert ORIENTATION/CONSCIOUSNESS: Yes awake OTHER: Sitting up in chair. Pleasant, conversant. In good spirits. Feels stronger. Ready to return home. HENMT: COMMON NORMALS: oropharynx normal Neck/C-Spine: COMMON NORMALS: no JVD Resp: COMMON NORMALS: normal respiratory effort and clear to auscultation bilaterally AUSCULTATION: clear to auscultation bilaterally Cardio: COMMON NORMALS: no JVD, regular rhythm, S1 normal heart sound present, S2 normal heart sound present and No murmurs present (Cardio) RHYTHM: regular rhythm HEART SOUNDS: S1 normal heart sound present and S2 normal heart sound present GI: COMMON NORMALS: Normal to inspection, nondistended, normoactive bowel sounds present, Soft to palpation and non-tender PALPATION: Yes Soft to palpation Extremity: COMMON NORMALS: no joint enlargement and no pedal edema Neuro: COMMON NORMALS: patient oriented x3 and moves all extremities SENSORIUM/ORIENTATION: Yes alert Skin: COMMON NORMALS: no rashes or lesions noted GENERAL SKIN EXAM: no rashes or lesions noted Discharge Data Data Completed and Pending: Completed Studies During Hospitalization Category Date Time Status XR chest 1V tai ble [id number] Stat Exams 09/06/20 10:28 Completed Pending at discharge Category Date Time Status Blood Culture Sta t Lab 09/06/20 17:50 Results Complete Blood Co unt w/Auto AM LABS Lab 09/10/20 04:00 Ordered Complete Blood Co unt w/Auto AM LABS Lab 09/11/20 04:00 Ordered Comprehensive Met abolic Panel AM LA BS Lab 09/10/20 04:00 Ordered Comprehensive Met abolic Panel AM LA BS Lab 09/11/20 04:00 Ordered Labs from last 24 hours 09/09/20 09/09/20 09/09/20 11:24 07:11 04:45 WBC RBC Hgb Hct MCV MCH MCHC RDW Plt Count MPV Neut % (Auto) Lymph % (Auto) [place] % (Auto) Eos % (Auto) Baso % (Auto) Neut # (Auto) Lymph # (Auto) [place] # (Auto) Eos # (Auto) Baso # (Auto) Nucleated RBC % (a uto) Nucleated RBCs # D-Dimer 0.54 Sodium Potassium Chloride Carbon Dioxide Anion Gap BUN Creatinine GFR Calculation Glucose POC Glucose 260 238 Calculated Osmolal ity Calcium Total Bilirubin AST ALT Alkaline Phosphata se C-Reactive Protein Total Protein Albumin Globulin 09/09/20 09/09/20 09/08/20 04:45 04:45 20:16 WBC 6.3 RBC 4.61 Hgb 12.3 Hct 39.3 MCV 85.2 MCH 26.7 L MCHC 31.3 RDW 13.4 Plt Count 350 MPV 10.8 H Neut % (Auto) 78.5 Lymph % (Auto) 13.2 [place] % (Auto) 6.2 Eos % (Auto) 0.0 Baso % (Auto) 0.3 Neut # (Auto) 4.93 Lymph # (Auto) 0.8 [place] # (Auto) 0.4 Eos # (Auto) 0.0 Baso # (Auto) 0.0 Nucleated RBC % (a uto) 0 Nucleated RBCs # 0.0 D-Dimer Sodium 135 L Potassium 4.2 Chloride 101 Carbon Dioxide 20 L Anion Gap 18.2 BUN 21 H Creatinine 0.6 GFR Calculation 103.4 Glucose 253 H POC Glucose 336 Calculated Osmolal ity 292 Calcium 8.7 Total Bilirubin 0.3 AST 22 ALT 17 Alkaline Phosphata se 86 C-Reactive Protein 68.9 H Total Protein 6.8 Albumin 2.9 L Globulin 3.9 09/08/20 16:16 WBC RBC Hgb Hct MCV MCH MCHC RDW Plt Count MPV Neut % (Auto) Lymph % (Auto) [place] % (Auto) Eos % (Auto) Baso % (Auto) Neut # (Auto) Lymph # (Auto) [place] # (Auto) Eos # (Auto) Baso # (Auto) Nucleated RBC % (a uto) Nucleated RBCs # D-Dimer Sodium Potassium Chloride Carbon Dioxide Anion Gap BUN Creatinine GFR Calculation Glucose POC Glucose 120 Calculated Osmolal ity Calcium Total Bilirubin AST ALT Alkaline Phosphata se C-Reactive Protein Total Protein Albumin Globulin Vitals: Last Vital Signs Temp 97.9 F 09/09/20 10:00 Pulse 89 09/09/20 09:41 Resp 16 09/09/20 09:41 BP 147/99 09/09/20 08:20 Pulse Ox 95 09/09/20 11:02 Discharge Plan Discharge Patient Disposition: Home Condition: Stable Prescriptions: New benzonatate 100 mg Capsule 200 mg PO TID PRN (Reason: Cough) Qty: 30 RF: 0 azithromycin 500 mg tablet 500 mg PO DAILY 4 Days Qty: 4 RF: 0 dexamethasone 4 mg Tablet 6 mg PO DAILY Qty: 3 RF: 0 famotidine 20 mg tablet 20 mg PO BID 7 Days Qty: 14 RF: 0 Continued magnesium 250 mg tablet 250 mg PO BEDTIME RF: 0 diclofenac sodium [Voltaren] 1 % gel 2 gm TOPICAL TID PRN (Reason: unknown) RF: 0 allopurinol 300 mg tablet 300 mg PO DAILY Qty: 30 RF: 2 clonidine HCl 0.1 mg tablet 0.1 mg PO Q12H PRN (Reason: hypertensive emergency) Qty: 60 RF: 2 tramadol 50 mg tablet 50 mg PO Q6H PRN (Reason: pain) Qty: 60 RF: 2 meclizine 25 mg tablet 25 mg PO BID PRN (Reason: dizziness) Qty: 60 RF: 0 (DME) nebulizers Misc See Rx Instructions .ROUTE .MEDSUPPLY Qty: 1 RF: 0 albuterol sulfate 2.5 mg /3 mL (0.083 %) solution for nebulization 2.5 mg INHALATION Q4H PRN (Reason: shortness of breath or wheezing) Qty: 75 RF: 0 budesonide [Pulmicort] 0.5 mg/2 mL suspension for nebulization 0.5 mg INHALATION BID Qty: 120 RF: 0 cyclobenzaprine 5 mg tablet 5 mg PO TID PRN (Reason: muscle spasm) Qty: 90 RF: 2 metformin 500 mg tablet extended release 24hr 1,000 mg PO BID Qty: 360 RF: 0 Byetta 10 mcg/dose(250 mcg/mL) 2.4 mL pen injector 10 mcg SUBCUT BID Qty: 4.8 RF: 0 irbesartan 150 mg tablet 150 mg PO DAILY Qty: 30 RF: 2 gabapentin 600 mg tablet 300 mg PO BID Qty: 30 RF: 1 furosemide 20 mg tablet 20 mg PO DAILY Qty: 30 RF: 2 amlodipine 5 mg tablet 5 mg PO DAILY Qty: 30 RF: 2 albuterol sulfate [Proventil HFA] 90 mcg/actuation HFA aerosol inhaler 2 puff INHALATION Q6H PRN (Reason: shortness of breath or wheezing) Qty: 18 RF: 0 Estriol-Estradiol See Rx Instructions .ROUTE .COMPLEX RF: 0 Changed glipizide 10 mg tablet extended release 24hr 15 mg PO DAILY Qty: 30 RF: 2 Discharge Orders: Discharge Order (Routine); Ordered 09/09/20 Ordered By: Francis Douglass Other Ambulatory Orders: DME: Oxygen (Order) Location: None Selected Ordered By: Francis Douglass Referrals: Peggy Blankenship FNP-C [Primary Care Provider] - 1 week (Please attempt to arrange telehealth visit within 48 hours after discharge. Otherwise follow-up in about a week unless otherwise instructed by primary care provider.) Discharge Diet: Cardiac and Diabetic Discharge Activity: Increase activity as tolerated, Limit activity as instructed and Oxygen as instructed Activity Restrictions/Additional Instructions: If able to monitor oxygen saturation at home. Target saturation 92%, does not have to be higher than 96%. If persistently below 88% or you are having any other concerning symptoms like chest pain, severe shortness of breath, extreme fatigue, fainting, inability to tolerate oral food or drink, color change of lips or fingers to blue, or any other call an ambulance. Complete antibiotic course and short course of steroid. Continue incentive spirometry. Flutter valve as tolerating. Continue to gradually increase activity level avoiding overexertion. Please follow-up with your primary care doctor for optimization of control of diabetes as A1c was found to be 10.1. Please note your glipizide level was increased to 50 mg, although this may not be sufficient to achieve good control. Please do watch for hypoglycemia as both glipizide and together with Byetta can cause hypoglycemia. Do not take if your blood glucose is less than 80-100 please discuss consideration of initiation of insulin therapy. If glucose is lower than 70, take sugary snacks, recheck in 15 minutes, if persistently low seek medical attention. Continue to monitor your blood glucose, blood pressure 3 times daily. Please attempt to arrange telehealth visit with your primary care provider within 48 hours after discharge, otherwise please follow-up in about a week. Maintain isolation for additional 7 days, subsequently if symptoms resolved, co ugh improving and no fever for at least 24 hours isolation may be discontinued. Discharge Attestations Time Spent in Discharge Care*: less than 30 min Quality Metrics Clinical Quality Measures During this hospital stay, did patient experience: None Coding Level of Care Code Acute Director Of Student Affairs for g Fwd Diagnoses Pneumonia due to COVID-19 virus U07.1; J12.89 Non-insulin dependent diabetes mellitus Essential (primary) hypertension I10 Gout M1A.9XX0 Gout site: unspecified site Gout etiology: unspecified cause Chronicity: chronic Presence of tophus: without tophus Lumbar back pain with radiculopathy affecting right lower extremity M54.16 Mixed hyperlipidemia E78.2 Morbid obesity E66.01
--- NOTE | 2020-09-11 12:15 | PC.SOCIAL ---
Spoke with patient post discharge. She is wearing her O2 and was at 2L sat was 98%. They have turned it down 1L and is still having sat at 97%. She only gets short of breath if ambulates long distances. We have reviewed her new medications. She is taking them. We discussed the Glipizide medication dose change from 10mg to 15mg. With current oral perscription she is unable to split them so is taking the 10mg still. Called pharmacist Kevin at [facility] and was able to call in the additional 5mg ER so she will be taking the total prescribed of 15mg once daily. She will need to follow up with provider to see if this dose should continue and discuss other medications as well. Updated spouse Harsha of this. We discussed the importance of considering Flu and PNA vaccine since she usually does not get these. We discussed the importance of masking out in public, social distancing of 6ft, washing hands for 20 sec each time and to sanitize high utlized surfaces. Patient verbalized understanding. She has talked to Peggy a few times since returning home and will wait till she returns to see her. She is not going to do the televisit with Emma Aguillon since she has talked to her provider already. Patient is not interested in plasma donation. She was pleased with her care and has no concerns.
== END 2020-09-09 15:45 | disposition home or self-care (01) | DRG 177 ==
LOC: ER 12:34 → ICU 09-07 11:14
PROVIDERS: Physician Assistant; Admitting Provider Family Medicine; PCP Nurse Practitioner; Visit Provider Internal Medicine
DX: U07.1 COVID-19 (principal); J12.89 Other viral pneumonia; Z68.42 Body mass index [BMI] 45.0-49.9, adult; E78.2 Mixed hyperlipidemia; E66.01 Morbid (severe) obesity due to excess calories; E11.9 Type 2 diabetes mellitus without complications; I10 Essential (primary) hypertension; M1A.9XX0 Chronic gout, unspecified, without tophus (tophi); M54.16 Radiculopathy, lumbar region; G89.29 Other chronic pain; M54.5 Low back pain; R19.7 Diarrhea, unspecified; Z79.84 Long term (current) use of oral hypoglycemic drugs
CPT/HCPCS: 12345; 36415; 36416; 71045; 80048; 80053; 82550; 82728; 82962; 83036; 83605; 83615; 83880; 84145; 84484; 85025; 85378; 85384; 86140; 87040; 87070; 87205; 87641; 87804; 93005; 94640; 94664; 96372; 96375; 99283; J0456; J1650; J1815; J2270; J3490; J3535; J7050; J8540

== ENCOUNTER 2020-09-17 09:12 | Outpatient (CLI) | payer BC, SELFPAY ==
--- NOTE | 2020-09-17 09:30 | US_ITS ---
WS: [id number] ULTRASOUND PELVIS TECHNIQUE: Transabdominal and transvaginal. ULTRASOUND PELVIS TECHNIQUE: Transabdominal. CLINICAL INFORMATION: post menopausal bleeding LMP: : No. COMPARISON: None. FINDINGS: Uterus Orientation: Anteverted. Size: 9.4 cm x 4.3 cm x 3.5 cm. Masses: None. Cervix: 3.7 cm. Incidental nabothian cysts in the cervix. Endometrium: Thickened Endometrium thickness: 0.8 cm. Adnexa: Left ovary not seen. Normal right ovary. Right ovary size: 2.3 cm x 2.4 cm x 1.3 cm. Right ovary volume: 3.7 ccm3. Free fluid: None. Other findings: None. US/US pelvic with transvaginal IMPRESSION: 1. Endometrial thickening measuring 8.2 mm abnormal in a postmenopausal patien t. Recommend further evaluation with hysteroscopy to evaluate for neoplasia/hyp erplasia. 2. Left ovary is not visualized. 3. Normal right ovary. 4. No free fluid in the cul-de-sac.
== END 2020-09-17 09:13 | disposition home or self-care (01) ==
LOC: US 09:19
PROVIDERS: PCP Nurse Practitioner; Visit Provider Nurse Practitioner
DX: N93.9 Abnormal uterine and vaginal bleeding, unspecified (principal); R93.89 Abnormal findings on diagnostic imaging of other specified body structures
CPT/HCPCS: 76830; 76856

== ENCOUNTER 2020-10-17 11:35 | Outpatient (CLI) | payer BC, SELFPAY ==
--- NOTE | 2020-10-17 12:00 | MM_ITS ---
WS: [id number] BILATERAL SCREENING DIGITAL MAMMOGRAM WITH CAD HISTORY: breast screen COMPARISON: 09/07/2019 and 09/05/2018 and 09/01/2017 Bilateral CC and MLO views submitted. Computer aided detection analyzed. Breast composition: There are scattered areas of fibroglandular density. No suspicious masses, microc alcifications or architectural distortion. Stable nodules in the anterior RIGHT breast. MM/[place] [id number] IMPRESSION: BI-RADS: 1-Negative FOLLOW UP: 1 Year Follow-up
== END 2020-10-17 11:36 | disposition home or self-care (01) ==
LOC: RADSHAW 11:39
PROVIDERS: PCP Nurse Practitioner; Visit Provider Nurse Practitioner
DX: Z12.31 Encounter for screening mammogram for malignant neoplasm of breast (principal)
CPT/HCPCS: 77067

== ENCOUNTER 2020-11-11 10:20 | Outpatient (CLI) | payer BC, SELFPAY ==
[2020-11-11 11:02] LABS: Urine Appearance Clear (CLEAR); Urine Color Straw (Yellow)
[2020-11-11 11:03] LABS: Add Urine Microscopic? YES; Bilirubin Urine Neg (Negative); Blood Urine 3+ (Negative); Glucose Urine UA 1+ (Normal); Ketones Urine Negative (Negative); Leukocyte Esterase Urine 2+ (Negative); Nitrate Urine Negative (Negative); Protein Urine Neg (Negative); Urobilinogen Urine Norm (Negative)
[2020-11-11 11:18] LABS: Alanine Aminotransferase 28 U/L (0-33); Albumin Level 4.3 g/dL (3.5-5.2); Alkaline Phosphatase 84 IU/L (35-105); Anion Gap 16.5 (5-19); Aspartate Amino Transferase 24 U/L (0-32); Blood Urea Nitrogen 16 mg/dL (6-20); Calcium 9.6 mg/dL (8.5-10.5); Carbon Dioxide 27 mmol/L (22-29); Chloride 95 mmol/L (98-107); Chol HDL Ratio 4.08 mg/dL (0.0-4.40); Cholesterol 204 mg/dL (0-200); Globulin 2.8 g/dL (1.3-4.6); Glomerular Filtration Rate 86.2 mL/min (90-130); Glucose 260 mg/dL (65-115); HDL Cholesterol 50 mg/dL (60-100); LDL Cholesterol Calculated 116 mg/dL (50-129); Osmolality Calculated 288 mOsm/kg (285-295); Potassium 4.5 mmol/L (3.5-5.1); Sodium 134 mmol/L (136-145); Total Bilirubin 0.4 mg/dL (0.15-1.2); Total Protein 7.1 g/dL (6.6-8.7); Triglycerides 191 mg/dL (0-150); VLDL Cholestrol Calculation 38 mg/dL (0-30)
[2020-11-11 11:40] LABS: Add Urine Culture? Yes; Bacteria Urine 2+ /hpf; RBC Urine 0-4 /hpf (0-2); Squamous Epithelial Cell Urine 0-4 /hpf (0-5)
[2020-11-11 14:29] LABS: Estmated Average Glucose 183
== END 2020-11-11 10:21 | disposition home or self-care (01) ==
PROVIDERS: PCP Nurse Practitioner; Visit Provider Nurse Practitioner
DX: E11.65 Type 2 diabetes mellitus with hyperglycemia (principal); Z79.4 Long term (current) use of insulin
CPT/HCPCS: 36415; 80053; 80061; 81001; 83036; 87086

== ENCOUNTER → 2020-12-03 10:43 | Outpatient (BNVA) | payer BC, SELFPAY | PROVIDERS: PCP Nurse Practitioner; Visit Provider Obstetrics & Gynecology | DX: N95.0 Postmenopausal bleeding (principal); Z01.812 Encounter for preprocedural laboratory examination | CPT/HCPCS: 87635 ==

== ENCOUNTER 2020-12-09 08:06 | Day surgery (SDC) | payer BC, SELFPAY ==
[2020-12-03 11:20] VITALS: BMI 48.4
--- NOTE | 2020-12-03 14:01 | ANES.PREANE2 ---
Pre-Anesthetic Assessment Pre-Anesthetic Assessment: Height/Weight: Height 1.52 m Weight 112.491 kg Proposed Procedure: Operation Date: 12/09/20 10:35 Proposed Procedures p Hysteroscopy 00518 [id number] N95.0 N84.0(Not Applicable) - Goyo Bernal MD s Dilation And Curettage (D&C) with possible myosure and paracervical block(Not Applicable) - Goyo Bernal MD Was Beta Devora taken within 24 hours: N/A Social: Social History: No alcohol and No tobacco Exam: Pre-Anes Outpt Exam: alert, oriented x 3, clear to auscultation bilaterally and regular rate & rhythm Airway: Submandibular: WNL Cervical ROM: WNL MP: 2 Dentition: Full CV/HEM: CV/HEM: HTN Metabolic: Metabolic: DM and Morbid obesity Anesthetic Plan: ASA status: 3 Anesthesia: General Risk of > 500 ml blood loss (7ml/kg in children): No PFSH Anesthesia PFSH: Medical History (Updated 11/21/20 @ 18:03 by Goyo Bernal MD) Diabetes mellitus with hyperglycemia, with long-term current use of insulin Essential (primary) hypertension Gout Lumbar back pain with radiculopathy affecting right lower extremity Mixed hyperlipidemia Morbid obesity Shingles Surgical History (Updated 10/27/20 @ 18:51 by Goyo Bernal MD) H/O hand surgery (11/11/17) Left hand. Trigger finger release x 2 with removal of mass from 4th finger. History of carpal tunnel surgery (~1994) right Hx of section in 1985 and 1987 S/P tubal ligation (~1987) Performed at time of section. Status post trigger finger release (12/18/19) Right 4th finger. Performed by Dr. 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
[2020-12-09 08:31] VITALS: BP 149/102; PULSE 99; RESP 18; TEMP 36.3; O2SAT 98; BMI 48.4
[2020-12-09] MEDS: sodium chloride 0.9% 1,000 ML 30 ML IV (08:40)
[2020-12-09] MEDS: ketorolac 30 mg/mL INJ IVP (08:40)
--- NOTE | 2020-12-09 08:40 | P.ANESUD_ITS ---
Pre-Anesthetic Update Pre-Anesthetic Assessment: Date of Surgery/Procedure: 12/09/20 Preop Eli gnosis: Postmenopausal bleeding, Endometrial polyp Proposed Procedure: Operation Date: 12/09/20 11:00 Proposed Procedures p Hysteroscopy [id number] N95.0 N84.0(Not Applicable) - Goyo Bernal MD s Dilation And Curettage (D&C) with possible myosure and paracervical block(Not Applicable) - Goyo Bernal MD Any changes to Pre-Anesthetic Assessment?: No Last Intake: Intake Last Liquid Date 12/08/20 Last Solid Date 12/08/20 Vitals: Temperature 97.3 F L 12/09/20 08:31 Temperature Source Temporal Artery S can 12/09/20 08:31 Pulse Rate 99 12/09/20 08:31 Pulse Rhythm 12/09/20 08:31 Pulse Strength 3+ Normal 12/09/20 08:31 Respiratory Rate 18 12/09/20 08:31 Blood Pressure 149/102 12/09/20 08:31 Blood Pressure Arabella n 117 12/09/20 08:31 Pulse Oximetry 98 12/09/20 08:31 Oxygen Delivery Me thod 12/09/20 08:31 Exam: Pre-Anes Outpt Exam: alert, oriented x 3, clear to auscultation bilaterally and regular rate & rhythm Other Pertinent Information: Other Pertinent Information: MAC Cardiac Studies: No Data to Display
--- NOTE | 2020-12-09 08:43 | P.HPUD_ITS ---
Surgery/Procedure H&P Update DATE OF PROCEDURE: December 09, 2020 DATE H&P PERFORMED: 11/19/20 H&P UPDATE INFORMATION: I have reviewed H&P completed within last 30 days, I have examined patient prior to procedure, No changes to prior documentation and H&P is in [facility] [place] EMR on date indicated PREOP DIAGNOSIS: Postmenopausal bleeding, Endometrial polyp PLANNED PROCEDURE: Operation Date: 12/09/20 11:00 Proposed Procedures p Hysteroscopy 78286 [id number] N95.0 N84.0(Not Applicable) - Goyo Bernal MD s Dilation And Curettage (D&C) with possible myosure and paracervical block(Not Applicable) - Goyo Bernal MD
[2020-12-09] MEDS: insulin regular-human 100 units/1 mL 5 UNIT IVP (08:45)
[2020-12-09 08:47] LABS: Glucose Point of Care 270 mg/dL (70-110)
--- NOTE | 2020-12-09 09:38 | PM.OP ---
Operative Report Date of procedure: December 09, 2020 Pre-op Diagnosis: Postmenopausal bleeding, Endometrial polyp Post-op Diagnosis: Postmenopausal bleeding, Endometrial polyps Procedure Done: Hysteroscopy, dilation and curettage with polypectomy, Paracervical block Specimens removed/disposition: Endometrial curettings and polyps Surgeon: Goyo Bernal Search Marketing Analyst: None Anesthesia: MAC and Other (Paracervical block with 2% lidocaine with epinephrine) Estimated blood loss (mL): 5 IV fluids (mL): 900 Complications: None Findings: Minimal uterine prolapse. Second-degree rectocele present. Multiple polyps seen within the uterus and lower uterine segment. One polyp was protruding from the cervical os. Brief History: Patient is a 55-year-old female 2, para 2 who has been postmenopausal since the age of 50. She presented to the office on 10/23/2020 as a referral from GETACHEW Maza due to postmenopausal bleeding. Patient reported she had been hospitalized in August due to Covid and was started on prophylactic blood thinners while in the hospital. At that point, she started having some bleeding which lasted for about 3 to 4 days. Bleeding then stopped and she reports no further bleeding. She had an ultrasound performed while in the hospital and was found to have an endometrial stripe of 8 mm. Because of the bleeding and the thickened endometrial stripe she was referred to my office. On exam in the office, she had been found to have a polyp protruding through the cervix. As a result, decision was made to proceed with a hysteroscopy, D&C, polypectomy. Procedure: The patient was taken to the operating room where IV sedation was started. She was prepped and draped in the usual sterile fashion in the dorsal supine position with legs in Joseph style stirrups. Sequential compression boots had been placed prior to starting the case. Patient had voided just before coming to the operating room. Exam under anesthesia was performed and the patient was noted to have minimal uterine prolapse with a second-degree rectocele. A weighted speculum was placed in the vagina and the cervix was grasped with a single-tooth tenaculum. A paracervical block was performed with a total of 11 mL of 2% lidocaine with epinephrine used. She was noted to have a polyp protruding from the cervical os. This was grasped with forceps and removed. The cervix was serially dilated until a hysteroscope could be passed. Crystalloid solution was used as a distention media. The endometrial cavity was inspected. She was noted to have multiple polyps in the endometrial cavity. She had 2 in the left cornual region, 1 on the right sidewall, and one arising from the posterior wall of the lower uterine segment. All of these had a benign appearance. Using polyp forceps, the larger polyps in the posterior wall and right sidewall were able to be individually grasped and removed. Using curettes, the polyp in the left cornual region were removed. Hysteroscopy was performed at multiple times through this process to confirm removal of the polyps. The tenaculum was removed and there was minimal bleeding from the tenaculum site. Patient tolerated the procedure well. Sponge and needle counts were correct. DRAINS: None POSTOPERATIVE STATUS: The patient was transferred to the recovery room in satisfactory condition DISPOSITION: Discharge to home when criteria was met. FOLLOWUP APPOINTMENT: Followup appointment had been scheduled on 12/18/2020 in my office. MEDICATIONS: She is instructed to resume her usual home medications.
[2020-12-09 09:42] VITALS: BP 94/67; PULSE 99; RESP 18; TEMP 36.5; O2SAT 95
[2020-12-09 09:59] VITALS: BP 113/66; PULSE 92; RESP 18; O2SAT 95
[2020-12-09 10:15] LABS: Glucose Point of Care 201 mg/dL (70-110)
--- NOTE | 2020-12-09 14:33 | ANE.PACU2 ---
Inpatient post-anesthesia follow up: Airway intact: Yes Vital signs: Temperature 97.7 F Pulse Rate 92 Respiratory Rate 18 Blood Pressure 113/66 Pulse Oximetry 95 Oxygen Delivery Me thod Room Air Oxygen Flow Rate Fraction of Inspir ed Oxygen Hydration adequate: Yes Nausea and vomiting: No Pain level: 2 Mental status: Baseline
== END 2020-12-09 10:21 | disposition home or self-care (01) ==
PROVIDERS: PCP Nurse Practitioner; Visit Provider Obstetrics & Gynecology
PROC: 0UJD8ZZ Inspection of Uterus and Cervix, Via Natural or Artificial Opening Endoscopic (ICD-10-PCS; CPT 58555; principal; 2020-12-09 10:10)
PROC: (CPT 58120; 2020-12-09 10:10)
DX: N95.0 Postmenopausal bleeding (principal); N84.0 Polyp of corpus uteri; I10 Essential (primary) hypertension; E11.9 Type 2 diabetes mellitus without complications; E66.01 Morbid (severe) obesity due to excess calories; Z68.42 Body mass index [BMI] 45.0-49.9, adult; E78.2 Mixed hyperlipidemia
CPT/HCPCS: 58558; 12345; 36416; 82962; 88305; 96374; 96375; J1815; J1885; J2250; J2405; J2704; J3010; J7030

== ENCOUNTER → 2021-01-02 11:48 | Outpatient (BNVA) | payer BC, SELFPAY | PROVIDERS: PCP Nurse Practitioner; Visit Provider Nurse Practitioner | DX: E11.65 Type 2 diabetes mellitus with hyperglycemia (principal); I10 Essential (primary) hypertension; E78.2 Mixed hyperlipidemia; Z79.4 Long term (current) use of insulin | CPT/HCPCS: 80053; 80061; 82043; 83036 ==

== ENCOUNTER → 2021-03-02 11:49 | Outpatient (BNVA) | payer BC, SELFPAY | PROVIDERS: PCP Nurse Practitioner; Visit Provider Nurse Practitioner | DX: E11.65 Type 2 diabetes mellitus with hyperglycemia (principal); J32.9 Chronic sinusitis, unspecified; I10 Essential (primary) hypertension; M54.16 Radiculopathy, lumbar region; M1A.9XX0 Chronic gout, unspecified, without tophus (tophi); Z79.4 Long term (current) use of insulin | CPT/HCPCS: 80053; 80061; 83036 ==

== ENCOUNTER → 2021-04-24 14:57 | Outpatient (BNVA) | payer BC, SELFPAY | PROVIDERS: PCP Nurse Practitioner; Visit Provider Obstetrics & Gynecology | DX: R31.9 Hematuria, unspecified (principal); M47.896 Other spondylosis, lumbar region | CPT/HCPCS: 84315; 87086 ==

== ENCOUNTER → 2021-04-29 10:17 | Outpatient (BNVA) | payer BC, SELFPAY | PROVIDERS: PCP Nurse Practitioner; Visit Provider Nurse Practitioner | DX: M54.16 Radiculopathy, lumbar region (principal); M47.896 Other spondylosis, lumbar region | CPT/HCPCS: 72100 ==

== ENCOUNTER → 2021-05-26 11:31 | Outpatient (BNVA) | payer BC, SELFPAY | PROVIDERS: PCP Nurse Practitioner; Visit Provider Nurse Practitioner | DX: E11.65 Type 2 diabetes mellitus with hyperglycemia (principal); Z79.4 Long term (current) use of insulin; M54.16 Radiculopathy, lumbar region; I10 Essential (primary) hypertension; M1A.9XX0 Chronic gout, unspecified, without tophus (tophi) | CPT/HCPCS: 80053; 81000; 83036 ==

== ENCOUNTER 2021-06-10 06:54 | Outpatient (CLI) | payer BC, SELFPAY ==
--- NOTE | 2021-06-10 08:00 | US_ITS ---
WS: [id number] RENAL ULTRASOUND HISTORY: I10 - Essential (primary) hypertension COMPARISON: None available. TECHNIQUE: 2-D and color Doppler imaging of the kidney submitted. Right kidney: 10.8 cm x 4.5 cm x 6.4 cm. Normal size kidney. No hydronephrosis or solid mass. Exophytic cyst from the superior kidney measures 1.0 x 0.7 x 1.3 cm. Left kidney: 10.4 cm x 5.4 cm x 5.6 cm. Normal echogenicity with no hydronephrosis or mass. Aorta: Normal. Urinary Bladder: Normal distention. US/US renal BI* [id number] IMPRESSION: 1. No renal obstruction or solid mass. 2. Simple cyst superior pole RIGHT kidney.
== END 2021-06-10 06:55 | disposition home or self-care (01) ==
LOC: US 06:57
PROVIDERS: PCP Nurse Practitioner; Visit Provider Obstetrics & Gynecology
DX: I10 Essential (primary) hypertension (principal); N28.1 Cyst of kidney, acquired
CPT/HCPCS: 76770

== ENCOUNTER 2021-06-10 06:59 | Outpatient (CLI) | payer BC, SELFPAY ==
--- NOTE | 2021-06-10 07:15 | US_ITS ---
WS: [id number] TRANSABDOMINAL PELVIC AND TRANSVAGINAL PELVIC ULTRASOUND HISTORY: N95.0 - Postmenopausal bleeding COMPARISON: 09/17/2020 Uterus: 7.3 cm x 4.1 cm x 3.3 cm. Normal size anteverted uterus. Endometrium: 0.4 cm. Endometrial evaluation is limited. The entire endometrium is not well seen. On t he transvaginal imaging the endometrium appears hypoplastic. On transvaginal imaging the endometrium is mildly prominent at 7 mm for postmenopausal patient. Right ovary: 2.1 cm x 2.2 cm x 1.4 cm. Poorly visualized. No mass. Vascularity appears normal. Left ovary: 2.6 cm x 2.6 cm x 2.0 cm. Poorly visualized. Normal vascularity. No free fluid US/US pelvic with transvaginal IMPRESSION: 1. Endometrial evaluation is limited. May need additional evaluation if there is a postmenopausal bleeding. 2. Otherwise negative.
== END 2021-06-10 07:00 | disposition home or self-care (01) ==
LOC: US 07:00
PROVIDERS: PCP Nurse Practitioner; Visit Provider Nurse Practitioner
DX: N95.0 Postmenopausal bleeding (principal)
CPT/HCPCS: 76830; 76856

== ENCOUNTER → 2021-07-06 14:58 | Outpatient (BNVA) | payer BC, SELFPAY | PROVIDERS: PCP Nurse Practitioner; Visit Provider Obstetrics & Gynecology | DX: N95.0 Postmenopausal bleeding (principal); R93.89 Abnormal findings on diagnostic imaging of other specified body structures | CPT/HCPCS: 88305 ==

== ENCOUNTER → 2021-10-16 08:10 | Outpatient (BNVA) | payer BC, SELFPAY | PROVIDERS: PCP Nurse Practitioner; Visit Provider Nurse Practitioner | DX: E11.65 Type 2 diabetes mellitus with hyperglycemia (principal); Z79.4 Long term (current) use of insulin | CPT/HCPCS: 81000; 88305 ==

== ENCOUNTER → 2021-10-20 09:20 | Outpatient (BNVA) | payer SELFPAY | PROVIDERS: PCP Nurse Practitioner; Visit Provider Dermatology | DX: Z01.89 Encounter for other specified special examinations (principal) ==

== ENCOUNTER → 2021-11-12 14:57 | Outpatient (BNVA) | payer BC, SELFPAY | PROVIDERS: PCP Nurse Practitioner; Visit Provider Surgery | DX: Z12.11 Encounter for screening for malignant neoplasm of colon (principal) | CPT/HCPCS: 87635 ==

== ENCOUNTER 2021-11-18 06:33 | Day surgery (SDC) | payer BC, SELFPAY ==
[2021-11-16 10:07] VITALS: BMI 40.0
--- NOTE | 2021-11-18 06:41 | ANES.PREANE2 ---
Pre-Anesthetic Assessment Pre-Anesthetic Assessment: Height/Weight: Height 1.52 m Weight 92.986 kg Preop Diagnosis: Postmenopausal bleeding, Endometrial polyp Proposed Procedure: Operation Date: 11/18/21 07:45 Proposed Procedures p Colonoscopy 52251 Z12.11(Not Applicable) - Marcus Frazier MD Familial anesthetic complications: None Was Beta Devora taken within 24 hours: N/A Was Clonidine taken within 24 hours: N/A Last intake: > 8 hrs Social: Social History: No alcohol and No tobacco Exam: Pre-Anes Outpt Exam: alert, oriented x 3, clear to auscultation bilaterally and regular rate & rhythm Airway: MP: 2 Dentition: Chipped Pulmonary: Pulmonary: Asthma CV/HEM: CV/HEM: HTN Metabolic: Metabolic: DM and Morbid obesity Musc/skel: Musc/skel: Lower Back Pain Anesthetic Plan: ASA status: 3 Anesthesia: MAC Risk of > 500 ml blood loss (7ml/kg in children): No PFSH Anesthesia PFSH: Medical History Diabetes mellitus with hyperglycemia, with long-term current use of insulin Essential (primary) hypertension Gout Lumbar back pain with radiculopathy affecting right lower extremity Mixed hyperlipidemia Morbid obesity Shingles Surgical History H/O hand surgery (11/11/17) Left hand. Trigger finger release x 2 with removal of mass from 4th finger. History of carpal tunnel surgery (~1994) right Hx of section in 1985 and 1987 S/P tubal ligation (~1987) Performed at time of section. Status post trigger finger release (12/18/19) Right 4th finger. Performed by Dr. Mcgraw Family History Mother Cancer lung Brain aneurysm Father Cancer lung Grandfather Diabetes Sister CAD (coronary artery disease) Social History Second hand smoke exposure: No Smoking risk assessment/counseling performed?: No Desire information about alcohol rehabilitation?: No Counseling given: No Desire information about substance/drug rehabilitation?: No Counseling given: No Adopted: No Caregiver/support person: No Lives independently: Yes Housing: House Marital status: Number of children: 2 service: No Pets and animals: Yes History of recent travel: No Female Reproductive History: Para: 2 Data Anesthesia Cardiac Studies: No Data to Display
[2021-11-18 07:10] VITALS: BP 138/88; PULSE 104; RESP 16; TEMP 36; O2SAT 99
[2021-11-18] MEDS: sodium chloride 0.9% 1,000 ML 30 ML IV (07:22)
--- NOTE | 2021-11-18 07:50 | P.HP_ITS ---
Same Day Surgery H&P Indication for Procedure/HPI DATE OF PROCEDURE: November 18, 2021 CHIEF COMPLAINT/INDICATIONFOR SURGICAL PROCEDURE: screening colonoscopy PREOP DIAGNOSIS: diagnostic PLANNED PROCEDRUE: Operation Date: 11/18/21 07:45 Proposed Procedures p Colonoscopy 94023 Z12.11(Not Applicable) - Marcus Frazier MD Medications/Allergies* Home Medications Medication Instructions Recorded Confirmed Type diclofenac sodium 1 % topical gel 2 gm TOPICAL TID PRN gm 11/15/19 11/18/21 History magnesium 250 mg tablet 250 mg PO BEDTIME 11/15/19 11/18/21 History aspirin 81 mg PO DAILY 12/09/20 11/16/21 History lidocaine [Blue-Emu Lidocaine 1 patch TOPICAL Q24H PRN 12/09/20 11/18/21 History Patch] cholecalciferol (vitamin D3) 25 25 mcg PO DAILY 10/19/21 11/18/21 History mcg (1,000 unit) tablet Allergies/Adverse Reactions Allergy/AdvReac Type Severity Reaction Status Date / Time Penicillins Allergy Severe rash Verified 11/18/21 07:08 Sulfa (Sulfonamide Allergy Severe nausea Verified 11/18/21 07:08 Antibiotics) Tetanus Vaccines and Toxoid Allergy Severe swelling Verified 11/18/21 07:08 lisinopril AdvReac Severe cough Verified 11/18/21 07:08 Current Medications: Generic Name Dose Route Start Last Admin Trade Name Freq PRN Reason Stop Dose Admin Sodium Chloride 1,000 mls @ 30 mls/hr 11/18/21 07:00 11/18/21 07:22 Sodium Chloride 0.9% IV 11/19/21 06:59 30 mls/hr .Q24H NEHEMIAS Administration Pertinent History/Comorbid Conditions* Medical History (Updated 07/08/21 @ 04:16 by Alee Esqueda MD) Diabetes mellitus with hyperglycemia, with long-term current use of insulin Essential (primary) hypertension Gout Lumbar back pain with radiculopathy affecting right lower extremity Mixed hyperlipidemia Morbid obesity Shingles Surgical History (Updated 10/27/20 @ 18:51 by Goyo Bernal MD) H/O hand surgery (11/11/17) Left hand. Trigger finger release x 2 with removal of mass from 4th finger. History of carpal tunnel surgery (~1994) right Hx of section in 1985 and 1987 S/P tubal ligation (~1987) Performed at time of section. Status post trigger finger release (12/18/19) Right 4th finger. Performed by Dr. Mcgraw Family History (Updated 10/23/20 @ 15:29 by Goyo Bernal MD) Diabetes Grandfather CAD (coronary artery disease) Sister Brain aneurysm Mother Cancer Mother lung Father lung Social History Second hand smoke exposure: No Smoking risk assessment/counseling performed?: No Desire information about alcohol rehabilitation?: No Counseling given: No Desire information about substance/drug rehabilitation?: No Counseling given: No Adopted: No Caregiver/support person: No Lives independently: Yes Housing: House Marital status: Number of children: 2 service: No Pets and animals: Yes History of recent travel: No Pertinent Exam Findings alert, oriented x 3 and regular rate & rhythm Recommendations Surgery/Procedure today Coding Level of Care Code Acute Energy And Sustainability Manager for Donnie Vu
[2021-11-18 08:17] VITALS: BP 111/80; PULSE 92; RESP 16; O2SAT 97
[2021-11-18 08:28] VITALS: BP 114/70; PULSE 91; RESP 16; O2SAT 94
--- NOTE | 2021-11-18 13:51 | ANE.PACU2 ---
Inpatient post-anesthesia follow up: Airway intact: Yes Vital signs: Temperature 96.8 F Pulse Rate 91 Respiratory Rate 16 Blood Pressure 114/70 Pulse Oximetry 94 Oxygen Delivery Me thod Room Air Oxygen Flow Rate Fraction of Inspir ed Oxygen Hydration adequate: Yes Nausea and vomiting: No Pain level: 2 Mental status: Baseline
== END 2021-11-18 08:38 | disposition home or self-care (01) ==
PROVIDERS: PCP Nurse Practitioner; Visit Provider Surgery
PROC: 0DJD8ZZ Inspection of Lower Intestinal Tract, Via Natural or Artificial Opening Endoscopic (ICD-10-PCS; CPT 45378; principal; 2021-11-18 07:45)
DX: Z12.11 Encounter for screening for malignant neoplasm of colon (principal); K57.30 Diverticulosis of large intestine without perforation or abscess without bleeding; K64.8 Other hemorrhoids; D12.5 Benign neoplasm of sigmoid colon; E11.65 Type 2 diabetes mellitus with hyperglycemia; E66.01 Morbid (severe) obesity due to excess calories; Z68.41 Body mass index [BMI] 40.0-44.9, adult
CPT/HCPCS: 45385; 88305; J2704; J7030

== ENCOUNTER 2021-12-18 14:39 | Outpatient (CLI) | payer BC, SELFPAY ==
--- NOTE | 2021-12-18 14:46 | MM_ITS ---
WS: [id number] BILATERAL DIGITAL SCREENING MAMMOGRAPHY WITH CAD CLINICAL INFORMATION: SCREENING HISTORY: Screening mammogram. No current complaints. COMPARISON: October 17, 2020 TECHNIQUE: Bilateral CC and MLO views. FINDINGS: Scattered fibroglandular densities bilaterally. A few incidental punctate calcifications. 5 mm asymme tric density mid depth LEFT breast on the MLO view. This may represent an intramammary lymph node but new from previous and is indeterminate. Recommend further evaluation with diagnostic mammography and ultrasound. RIGHT breast is unremarkable and unchanged. MM/[place] [id number] IMPRESSION: BI-RADS: 0-Incomplete: Need additional imaging evaluation FOLLOW UP: Need Additional Imaging
== END 2021-12-18 14:40 | disposition home or self-care (01) ==
LOC: RADSHAW 14:41
PROVIDERS: PCP Nurse Practitioner; Visit Provider Nurse Practitioner
DX: Z12.31 Encounter for screening mammogram for malignant neoplasm of breast (principal)
CPT/HCPCS: 77067

== ENCOUNTER → 2022-01-18 12:01 | Outpatient (BNVA) | payer BC, SELFPAY | PROVIDERS: PCP Nurse Practitioner; Visit Provider Nurse Practitioner | DX: E11.65 Type 2 diabetes mellitus with hyperglycemia (principal); Z79.4 Long term (current) use of insulin; E55.9 Vitamin D deficiency, unspecified; M1A.9XX0 Chronic gout, unspecified, without tophus (tophi); I10 Essential (primary) hypertension; M54.16 Radiculopathy, lumbar region; E66.01 Morbid (severe) obesity due to excess calories; M65.30 Trigger finger, unspecified finger; R09.81 Nasal congestion | CPT/HCPCS: 80053; 80061; 82306; 83036 ==

== ENCOUNTER 2022-01-25 08:55 | Outpatient (CLI) | payer BC, SELFPAY ==
--- NOTE | 2022-01-25 | US_ITS ---
NOTE: Report was unsigned for reason: Order was edited. Original Signature date and time was: 01/25/22 1637 LEFT 3D TOMOSYNTHESIS DIGITAL MAMMOGRAPHY WITH CAD CLINICAL INFORMATION: R92.8 - Other abnormal and inconclusive findings on diagn... COMPARISON: December 18, 2021 TECHNIQUE: 4 views of the left breast were obtained. FINDINGS: Scattered fibroglandular densities of the left breast. Stable 5 mm asymmetric density central LEFT breast. This appears unchanged from previous. Ultrasound is pending. ULTRASOUND BREAST LEFT TECHNIQUE: Ultrasound left breast focused area of concern. CLINICAL INFORMATION: R92.8 - Other abnormal and inconclusive findings on diagn... COMPARISON: None. FINDINGS: Ultrasound LEFT breast at the 1:00 position 5 cm from the nipple. Hypoechoic complex cystic appearing lesion measuring 1.0 0.9 x 0.7 CCM. Surrounding parenchymal echogenicity. No internal vascularity. This may be partially cystic but indeterminant and recommend further evaluation with ultrasound-guided biopsy/aspiration. MM/[place] [id number] IMPRESSION: BI-RADS: 4-Suspicious Finding-Biopsy Should Be Considered FOLLOW UP: US Guided Biopsy Recommended Recommend ultrasound-guided biopsy LEFT breast lesion. MTDD
--- NOTE | 2022-01-25 09:00 | MM_ITS ---
WS: [id number] LEFT 3D TOMOSYNTHESIS DIGITAL MAMMOGRAPHY WITH CAD CLINICAL INFORMATION: R92.8 - Other abnormal and inconclusive findings on diagn... COMPARISON: December 18, 2021 TECHNIQUE: 4 views of the left breast were obtained. FINDINGS: Scattered fibroglandular densities of the left breast. Stable 5 mm asymmetric density central LEFT br east. This appears unchanged from previous. Ultrasound is pending. ULTRASOUND BREAST LEFT TECHNIQUE: Ultrasound left breast focused area of concern. CLINICAL INFORMATION: R92.8 - Other abnormal and inconclusive findings on diagn... COMPARISON: None. FINDINGS: Ultrasound LEFT breast at the 1:00 position 5 cm from the nipple. Hypoechoic complex cystic appearing lesion measuring 1.0 0.9 x 0.7 CCM. Surrounding parenchymal echogenicity. No internal vascularity. T his may be partially cystic but indeterminant and recommend further evaluation with ultrasound-guided biopsy/aspiration. MM/[place] [id number] IMPRESSION: BI-RADS: 4-Suspicious Finding-Biopsy Should Be Considered FOLLOW UP: US Guided Biopsy Recommended Recommend ultrasound-guided biopsy LEFT breast lesion.
== END 2022-01-25 08:56 | disposition home or self-care (01) ==
LOC: RADSHAW 08:57
PROVIDERS: PCP Nurse Practitioner; Visit Provider Nurse Practitioner
DX: R92.8 Other abnormal and inconclusive findings on diagnostic imaging of breast (principal); N63.21 Unspecified lump in the left breast, upper outer quadrant
CPT/HCPCS: 76642; 77061

== ENCOUNTER 2022-02-23 12:12 | Outpatient (CLI) | payer BC, SELFPAY ==
--- NOTE | 2022-02-23 12:16 | US_ITS ---
WS: [id number] ULTRASOUND-GUIDED LEFT BREAST BIOPSY HISTORY: N60.09 - Solitary cyst of unspecified breast COMPARISON: Ultrasound 01/25/2022 and mammogram 01/25/2022 and 12/18/2021 Procedure, risks and complications are explained to the patient. Medications are reviewed. Consent is obtained. The mass in the LEFT breast is localized with ultrasound. Mass localizes to 1:00, 5 cm from the nippl e. The hyperechoic rim seen on the prior examination is slightly improved. This cyst appears slightly smaller. Skin is cleansed with ChloraPrep and anesthetized with 1% buffered lidocaine. Small dermato me is made. Under sterile conditions mass is biopsied with a 14-gauge Achieve needle. Multiple core b iopsies are performed. Material placed in formalin and sent to pathology for review. No complications encountered. Cyst nearly completely collapsed after the first biopsy. Breast tissue marker (Bard ultrasound enhanced ribbon): Single. Patient left the radiology suite with no complications. Patient is instructed to return to [facility] or [facility] with any concerns. US/[place] [id number] IMPRESSION: 1. Uncomplicated core needle biopsy LEFT breast mass at 1:00, 5 cm from the ni pple. PATHOLOGY: Benign fibroadipose tissue. No malignancy. RECOMMENDATION: Diagnostic LEFT mammogram follow-up 6 months.
== END 2022-02-23 12:13 | disposition home or self-care (01) ==
LOC: RAD 12:13
PROVIDERS: PCP Nurse Practitioner; Visit Provider Nurse Practitioner
DX: N60.02 Solitary cyst of left breast (principal)
CPT/HCPCS: 19083; 88305

== ENCOUNTER → 2022-05-28 11:30 | Outpatient (BNVA) | payer MEDICARE, BC, SELFPAY | PROVIDERS: PCP Nurse Practitioner; Visit Provider Nurse Practitioner | DX: E11.65 Type 2 diabetes mellitus with hyperglycemia (principal); Z79.4 Long term (current) use of insulin | CPT/HCPCS: 80053; 81000; 83036 ==

== ENCOUNTER 2022-07-27 09:58 | Outpatient (CLI) | payer MEDICARE, BC, SELFPAY ==
--- NOTE | 2022-07-27 12:00 | CT_ITS ---
WS: [id number] CT ABDOMEN AND PELVIS NONCONTRAST HISTORY: K43.9 - Ventral hernia without obstruction or gangrene TECHNIQUE: Imaging performed through the abdomen and pelvis. Coronal and sagittal reformats are submi tted. All CT scans at [facility] use at least one of these dose optimization techniques: auto mated exposure control; mA and/or kV adjustment per patient size (includes targeted exams where dose is matched to clinical indication); or iterative reconstruction. DLP: 1505.44 mGy.cm COMPARISON: None available. Lower thorax: Lung bases are clear. Benign granulomas. Visualized heart is normal. No hiatal hernia. Liver: Normal size liver. No mass or bile duct dilatation. Gallbladder: Normal gallbladder. Pancreas: Normal size and attenuation. Normal pancreatic duct. No pancreatitis or mass. Spleen: Normal. Adrenal glands: Normal. No mass. Right kidney: No renal obstruction. There are very small 2 to 3 mm nonobstructing calcifications in t he kidney. No ureteral calcification. There are several calcifications in the RIGHT pelvis which I be lieve are external to the ureter and phleboliths. Left kidney: Nonobstructing calcifications. The largest in the lower pole measures 7 mm. No ureteral obstruction. Aorta: Normal abdominal aorta, no aneurysm or atherosclerosis. No free fluid, intraperitoneal air or significant lymphadenopathy. GI tract: Normal appendix. Normal distention of the stomach. No small bowel obstruction. Mild diffuse constipation. No diverticulitis. Abdominal wall: No hernia is identified. Mild diffuse thinning of the abdominal wall musculature. Pelvis: Urinary bladder is nondistended. No free fluid or adenopathy. Osseous structures: Mild degenerative disc disease in the lumbar spine. No destructive bone lesions. CT/CT abdomen pelvis wo con [id number] IMPRESSION: 1. No acute abdominal or pelvic abnormalities. 2. No ventral abdominal wall hernia. 3. Mild diffuse constipation with no obstructing lesion or diverticulitis. 4. Normal appendix. 5. Bilateral nonobstructing small renal calculi.
== END 2022-07-27 09:59 | disposition home or self-care (01) ==
LOC: RAD 09:58
PROVIDERS: PCP Nurse Practitioner; Visit Provider Nurse Practitioner
DX: K43.9 Ventral hernia without obstruction or gangrene (principal); N20.0 Calculus of kidney; K59.00 Constipation, unspecified
CPT/HCPCS: 74176

== ENCOUNTER → 2022-08-19 10:15 | Outpatient (BNVA) | payer MEDICARE, BC, SELFPAY | PROVIDERS: PCP Nurse Practitioner; Visit Provider Nurse Practitioner | DX: E11.65 Type 2 diabetes mellitus with hyperglycemia (principal); Z79.4 Long term (current) use of insulin; E66.01 Morbid (severe) obesity due to excess calories; M1A.9XX0 Chronic gout, unspecified, without tophus (tophi); I10 Essential (primary) hypertension; M54.16 Radiculopathy, lumbar region; R09.81 Nasal congestion | CPT/HCPCS: 80053; 80061; 81000; 83036 ==

== ENCOUNTER 2022-08-30 07:59 | Outpatient (CLI) | payer MEDICARE, SELFPAY ==
--- NOTE | 2022-08-30 08:12 | MM_ITS ---
WS: [id number] DIAGNOSTIC LEFT DIGITAL TOMOSYNTHESIS MAMMOGRAPHY WITH CAD. LEFT breast ultrasound, limited. HISTORY: 6 MO F/U COMPARISON: 01/25/2022, 12/18/2021, 10/17/2020, breast ultrasound and biopsy 02/23/2022 Technique: CC, MLO and ML views. Spot compression LEFT MLO. Breast composition: There are scattered areas of fibroglandular density. 4 mm nodule in the central to lateral LEFT breast just above the nipple line seen only on the MLO view. Probably near 12-2 o'julia ck. There is a biopsy clip in the posterior LEFT breast with no associated mass. No suspicious calcif ications within the breast. LEFT breast ultrasound, limited. Ultrasound is directed in the upper outer quadrant of the LEFT breast 12:00. No mass or nodule or dis tortion is identified. The mammographic abnormality may be a small vessel seen on end. MM/[place] [id number] IMPRESSION: BI-RADS: 3-Probably Benign FOLLOW UP: 6 Month Follow-up Patient to return for annual screening mammogram in January 2023.
--- NOTE | 2022-08-30 09:01 | US_ITS ---
WS: [id number] DIAGNOSTIC LEFT DIGITAL TOMOSYNTHESIS MAMMOGRAPHY WITH CAD. LEFT breast ultrasound, limited. HISTORY: 6 MO F/U COMPARISON: 01/25/2022, 12/18/2021, 10/17/2020, breast ultrasound and biopsy 02/23/2022 Technique: CC, MLO and ML views. Spot compression LEFT MLO. Breast composition: There are scattered areas of fibroglandular density. 4 mm nodule in the central to lateral LEFT breast just above the nipple line seen only on the MLO view. Probably near 12-2 o'julia ck. There is a biopsy clip in the posterior LEFT breast with no associated mass. No suspicious calcif ications within the breast. LEFT breast ultrasound, limited. Ultrasound is directed in the upper outer quadrant of the LEFT breast 12:00. No mass or nodule or dis tortion is identified. The mammographic abnormality may be a small vessel seen on end. US/US breast LT limited* [id number] IMPRESSION: BI-RADS: 3-Probably Benign FOLLOW UP: 6 Month Follow-up Patient to return for annual screening mammogram in January 2023.
== END 2022-08-30 08:00 | disposition home or self-care (01) ==
LOC: RAD 08:01
PROVIDERS: PCP Nurse Practitioner; Visit Provider Nurse Practitioner
DX: R92.8 Other abnormal and inconclusive findings on diagnostic imaging of breast (principal)
CPT/HCPCS: 76642; 77061

== ENCOUNTER 2022-12-16 08:05 | Outpatient (CLI) | payer MEDICARE, SELFPAY ==
--- NOTE | 2022-12-16 08:00 | US_ITS ---
WS: [id number] ULTRASOUND ABDOMEN LIMITED CLINICAL INFORMATION: K80.20 - Calculus of gallbladder without cholecystitis wi... COMPARISON: Ultrasound 2007 FINDINGS: Liver Size: Enlarged Craniocaudal length: 19.1 cm. Echogenicity: Normal. Surface nodularity: None. Mass (size and location): None. Bile ducts Intrahepatic ducts: Normal. Common bile duct diameter: 0.5 cm. Gallbladder Cholelithiasis. Gallstones: Present Gallbladder sludge: None. Gallbladder wall thickening: None. Pericholecystic fluid: None. Sonographic Varags sign: Absent. Pancreas Normal as visualized. Right kidney: Normal. Hydronephrosis: None. Size: 10.4 cm x 4.8 cm x 3.4 cm. Abdominal aorta and IVC Visualized portions are normal. Ascites: None. US/US gall bladder [id number] IMPRESSION: 1. Cholelithiasis similar in appearance compared to 2007. No gallbladder wall thickening or pericholecystic fluid. 2. Normal common bile duct. 3. Hepatomegaly. 4. No hydronephrosis in RIGHT kidney.
--- NOTE | 2022-12-16 08:21 | XR_ITS ---
WS: [email or web address] XR shoulder RT min 2V* [id number] REASON FOR EXAM: M25.511 - Pain in right shoulder FINDINGS: Nonstandard Y-view difficult to interpret. No fracture or focal bone lesion. Mild narrowing of the acromioclavicular joint with moderate subchondral sclerosis and marginal osteop hytosis. There also appears to be osteophytosis of the undersurface of the acromial process laterally . Glenohumeral joint is intact and does not appear to be significantly narrowed. Joint space not optima lly visualized. Moderate to significant sclerosis and cystic change in the greater tuberosity of the humerus. No soft tissue abnormality. XR/XR shoulder RT min 2V* [id number] IMPRESSION: No acute bone or joint abnormality. Findings of moderate rotator cuff tendon arthropathy.
== END 2022-12-16 08:06 | disposition home or self-care (01) ==
LOC: RAD 08:06
PROVIDERS: PCP Nurse Practitioner; Visit Provider Nurse Practitioner
DX: K80.20 Calculus of gallbladder without cholecystitis without obstruction (principal); M25.511 Pain in right shoulder
CPT/HCPCS: 73030; 76705

== ENCOUNTER → 2022-12-28 12:18 | Outpatient (BNVA) | payer MEDICARE, SELFPAY | PROVIDERS: PCP Nurse Practitioner; Visit Provider Nurse Practitioner | DX: E11.65 Type 2 diabetes mellitus with hyperglycemia (principal); Z79.4 Long term (current) use of insulin; E55.9 Vitamin D deficiency, unspecified | CPT/HCPCS: 80053; 80061; 82043; 82306; 82607; 83036 ==

== ENCOUNTER 2023-03-02 07:55 | Outpatient (CLI) | payer MEDICARE, SELFPAY ==
--- NOTE | 2023-03-02 08:09 | MM_ITS ---
WS: [email or web address] VIEWS: MLO and CC views both breasts. 3D digital tomosynthesis is also included in this exam. Comparison made with prior exam of 09/05/2018, 09/07/2019, 10/17/2020, 12/18/2021... Findings: There was no sign of mass, architectural distortion or suspicious calcification in either breast. Sc attered fibroglandular densities MM/[place] [id number] Impression: BI-RADS: 2-Benign FOLLOW-UP: 1 Year Follow-up This mammogram was also analyzed by the Computer Aided Detection System R2 Imag e Gasket Winder.
== END 2023-03-02 07:56 | disposition home or self-care (01) ==
LOC: RAD 07:58
PROVIDERS: PCP Nurse Practitioner; Visit Provider Nurse Practitioner
DX: Z12.31 Encounter for screening mammogram for malignant neoplasm of breast (principal)
CPT/HCPCS: 77063; 77067

== ENCOUNTER → 2023-03-07 12:39 | Outpatient (BNVA) | payer MEDICARE, SELFPAY | PROVIDERS: PCP Nurse Practitioner; Visit Provider Nurse Practitioner | DX: E11.65 Type 2 diabetes mellitus with hyperglycemia; Z79.4 Long term (current) use of insulin | CPT/HCPCS: 80061; 81000; 82043; 83036; 84443; 85025; 85651; 86140 ==

== ENCOUNTER 2023-03-23 08:32 | Outpatient (RCR) | payer MEDICARE, SELFPAY | END 2023-04-06 23:59 | disposition home or self-care (01) | LOC: SPT 08:32 | PROVIDERS: Visit Provider Nurse Practitioner | DX: M25.511 Pain in right shoulder (principal) | CPT/HCPCS: 97161 ==

== ENCOUNTER 2023-03-24 15:11 | Outpatient (CLI) | payer MEDICARE, SELFPAY ==
--- NOTE | 2023-03-24 15:15 | MR_ITS ---
WS: [id number] MRI LUMBAR SPINE NONCONTRAST TECHNIQUE: Sagittal T1, T2 and STIR imaging. Axial T1 and T2 imaging. CLINICAL INFORMATION: M54.42 - Lumbago with sciatica, left side COMPARISON: None. FINDINGS: Mild lumbar curve. No acute compression. Central disc protrusion T11-T12. Mild central canal stenosis . This is only covered on the sagittal imaging. L1-L2: Mild annular bulging. Mild facet arthropathy. Spinal canal and foramen are patent. L2-L3: Mild annular bulging. Mild facet arthropathy. Foramen are patent. L3-L4: Mild annular bulging. Slight effacement of ventral thecal sac. Slight impingement traversing L 4 nerve roots. Mild LEFT greater than RIGHT foraminal narrowing. Mild facet arthropathy. L4-L5: Mild disc bulging with impingement on the RIGHT greater than LEFT subarticular recess and tom ersing L5 nerve roots. Moderate RIGHT foraminal narrowing impinges the exiting RIGHT L4 nerve root. M ild LEFT foraminal narrowing. Moderate facet arthropathy. L5-S1: Mild annular bulging. Mild facet arthropathy. Spinal canal foramen are patent. Visualized pelvic bony structures: Normal. Paravertebral soft tissues: Normal. Small bilateral renal cysts. Small central protrusion cervical spine rug sizer imaging at C6-C7 with mild central canal stenosis. [place] hartley thoracic spine. MR/MR lumbar spine wo con* [id number] IMPRESSION: 1. Mild lumbar curve. No acute compression. 2. Central disc protrusion T11-T12 with mild central canal stenosis. Prominent central protrusion measures 6 mm in AP dimension. This is only covered on the sagittal imaging. 3. RIGHT pericentral subarticular protrusion L4-L5 impinges the traversing RIG HT L5 nerve root in the subarticular recess. In addition, moderate RIGHT forami nal narrowing impinges the exiting RIGHT L4 nerve root. 4. Mild LEFT L3-L4 foraminal narrowing. 5. Moderate facet arthropathy worse at L4-L5.
== END 2023-03-24 15:12 | disposition home or self-care (01) ==
LOC: RAD 15:13
PROVIDERS: PCP Nurse Practitioner; Visit Provider Nurse Practitioner
DX: M54.42 Lumbago with sciatica, left side (principal); M51.26 Other intervertebral disc displacement, lumbar region; M51.24 Other intervertebral disc displacement, thoracic region; M48.061 Spinal stenosis, lumbar region without neurogenic claudication; M47.816 Spondylosis without myelopathy or radiculopathy, lumbar region
CPT/HCPCS: 72148; 80061; 81000; 82043; 83036; 84443; 85025; 85651; 86140

== ENCOUNTER → 2023-04-07 09:55 | Outpatient (BNVA) | payer MEDICARE, SELFPAY | PROVIDERS: PCP Nurse Practitioner; Visit Provider Nurse Practitioner | DX: E11.65 Type 2 diabetes mellitus with hyperglycemia (principal); Z79.4 Long term (current) use of insulin | CPT/HCPCS: 81000 ==

== ENCOUNTER 2023-04-18 15:01 | Emergency (ER) | payer MEDICARE, SELFPAY ==
[2023-04-18] VITALS (7 sets, daily range): BP systolic 117–197; BP diastolic 83–91; PULSE 79–90; RESP 18–20; TEMP 36.1; O2SAT 94–98
[2023-04-18 16:55] LABS: Basophils # 0.1 10^3/uL (0.0-0.1); Basophils % 0.5 %; Eosinophils % 0.3 %; Hemoglobin 14.2 g/dL (11.5-15.3); Lymphocytes # 1.2 10^3/uL (0.8-4.8); Lymphocytes % 9.4 %; Mean Corpuscular HGB Conc 32.3 g/dL (30.0-36.0); Mean Corpuscular Hemoglobin 27.6 pg (28.0-34.0); Mean Corpuscular Volume 85.4 fl (81-99); Mean Platelet Volume 10.2 fL (7.4-10.4); Monocytes # 0.7 10^3/uL (0.2-0.9); Neutrophils # 11.22 10^3/uL (1.8-7.7); Neutrophils % 84.6 %; Nucleated Red Blood Cells % 0 %; Platelet Count 264 10^3/cmm (130-400); Red Blood Count 5.15 10^6/uL (4.1-5.3); Red Cell Distribution Width 13.8 % (12.1-15.1); White Blood Count 13.3 10^3/uL (4.0-10.0)
[2023-04-18 17:26] LABS: Alanine Aminotransferase 16 U/L (0-33); Albumin Level 4.4 g/dL (3.5-5.2); Alkaline Phosphatase 104 U/L (35-105); Anion Gap 16.6 (5-19); Aspartate Amino Transferase 13 U/L (0-32); Blood Urea Nitrogen 28 mg/dL (6-20); Calcium 9.9 mg/dL (8.5-10.5); Carbon Dioxide 27 mmol/L (22-29); Chloride 98 mmol/L (98-107); Globulin 2.8 g/dL (1.3-4.6); Glomerular Filtration Rate 73.4 mL/min (90-130); Glucose 226 mg/dL (65-115); Lipase 39 U/L (13-60); Osmolality Calculated 297 mOsm/kg (285-295); Potassium 4.6 mmol/L (3.5-5.1); Sodium 137 mmol/L (136-145); Total Bilirubin 0.3 mg/dL (0.15-1.2); Total Protein 7.2 g/dL (6.6-8.7)
--- NOTE | 2023-04-18 18:52 | PC.NURSE ---
REPORT GIVEN TO [facility].
--- NOTE | 2023-04-18 18:54 | CTR_ITS ---
PROCEDURE INFORMATION: Exam: CT Abdomen And Pelvis With Contrast Exam date and time: 04/18/2023 7:43 PM Age: 57 years old Clinical indication: Abdominal pain; Generalized; Prior surgery; Surgery date: 6+ months; Surgery type: Hysterectomy; Patient HX: Diffuse abd pain with bloating TECHNIQUE: Imaging protocol: Computed tomography of the abdomen and pelvis with contrast. Radiation optimization: All CT scans at this facility use at least one of these dose optimization techniques: automated exposure control; mA and/or kV adjustment per patient size (includes targeted exams where dose is matched to clinical indication); or iterative reconstruction. Contrast material: OMNI 350; Contrast volume: 100 ml; Contrast route: INTRAVENOUS (IV); REPORTING DATA: Count of CT and Cardiac NM exams in prior 12 months: This patient has received [address] and 0 known cardiac nuclear medicine studies in the 12 months prior to the current study. COMPARISON: CT abdomen pelvis wo con [id number] 07/27/2022 11:50 AM RADIATION DOSE METRICS: Total DLP (mGy-cm): 953.15 FINDINGS: Liver: Hepatic steatosis. Gallbladder and bile ducts: Normal. No calcified stones. No ductal dilation. Pancreas: Normal. No ductal dilation. Spleen: Normal. No splenomegaly. Adrenal glands: Normal. No mass. Kidneys and ureters: Left proximal ureter 6 mm calculus with mild hydronephrosis and hydroureter with perinephric edema, please correlate for pyelonephritis. Bilateral nonobstructing renal calyceal stones. Bilateral renal cysts, negative for follow-up advised. Stomach and bowel: Prominent fluid in the small bowel without dilation suggestive of an enteritis. Appendix: No evidence of appendicitis. Intraperitoneal space: Unremarkable. No free air. No significant fluid collection. Vasculature: Unremarkable. No abdominal aortic aneurysm. Lymph nodes: Unremarkable. No enlarged lymph nodes. Urinary bladder: Unremarkable as visualized. Reproductive: Unremarkable as visualized. Bones/joints: Unremarkable. No acute fracture. Soft tissues: Unremarkable. CT/CT abdomen pelvis w con* [id number] IMPRESSION: 1. Left proximal ureter 6 mm calculus with mild hydronephrosis and hydroureter with perinephric edema, please correlate for pyelonephritis. 2. Prominent fluid in the small bowel without dilation suggestive of an enteritis. 3. Bilateral nonobstructing renal calyceal stones. 4. Bilateral renal cysts, negative for follow-up advised. 5. Hepatic steatosis. COMMENTS: Consistent with the [employer]'s Incidental Findings Committee white paper (J Am Sudeep Radiol 2018): Any incidental renal lesion less than 1 cm or classified as too small to characterize, or any incidental cystic renal lesion characterized as simple-appearing, is likely benign. No follow-up imaging is recommended for these lesions per consensus recommendations based on imaging criteria.
[2023-04-18 19:05] LABS: Add Urine Culture? Yes; Add Urine Microscopic? YES; Bacteria Urine 1+ /hpf; Bilirubin Urine Neg (Negative); Blood Urine 3+ (Negative); Glucose Urine UA 2+ (Normal); Ketones Urine 1+ (Negative); Leukocyte Esterase Urine Negative (Negative); Nitrate Urine Negative (Negative); Protein Urine Neg (Negative); RBC Urine 15-25 /hpf (0-2); Urine Appearance Clear (CLEAR); Urine Color Yellow (Yellow); Urobilinogen Urine Norm (Negative); pH Urine 5 (5-7)
[2023-04-18] MEDS: morphine 4 mg/mL SDV 1 mL IVP (19:16)
[2023-04-18] MEDS: ondansetron 2 mg/ML SDV 2 mL 4 MG IVP ×2 (19:16→20:42)
--- NOTE | 2023-04-18 19:31 | ED_ITS ---
HPI - Abdominal Pain General: Chief Complaint: Abdominal Pain Stated Complaint: abd pain and bloating Time Seen by Provider: 04/18/23 18:28 Source: patient Mode of arrival: ambulatory History of Present Illness: 57-year-old female states she has been having left lower quadrant pain over the last 5 to 6 days it got much worse today. States pain is sharp in nature rates an 8 out of 10 denies any worsening proving factors she denies any vomiting no history of diverticulitis. She had a hysterectomy. Associated Symptoms: Denies chills, diarrhea, fever(s), nausea and vomiting Review of Systems Const: Denies: fever(s) or chills ENMT: Denies: throat pain or dental pain Card: Denies: chest pain Resp: Denies: dyspnea GI: Reports: abdominal pain; Denies: nausea, vomiting or diarrhea Musc: Denies: neck pain or back pain Skin/Breast: Denies: rash Neuro: Denies: headache(s) PFSH ED PFSH: Medical History Colon polyps Diabetes mellitus with hyperglycemia, with long-term current use of insulin Essential (primary) hypertension Gout Lumbar back pain with radiculopathy affecting right lower extremity Mixed hyperlipidemia Obesity, Class II, BMI 35-39.9 Shingles Surgical History H/O hand surgery (11/11/17) Left hand. Trigger finger release x 2 with removal of mass from 4th finger. History of carpal tunnel surgery (~1994) right History of hysteroscopy 11/11/20--performed by Dr. Bernal, removed polyps at the same time Hx of section in 1985 and 1987 S/P tubal ligation (~1987) Performed at time of section. Status post colonoscopy (11/18/21) Status post trigger finger release (12/18/19) Right 4th finger. Performed by Dr. Mcgraw Family History Mother Cancer lung Brain aneurysm Father Cancer lung Grandfather Diabetes Sister CAD (coronary artery disease) Social History Smoking and tobacco status: former smoker Second hand smoke exposure: No Smoking risk assessment/counseling performed?: No Desire information about alcohol rehabilitation?: No Counseling given: No Substance/Drug Use: never Desire information about substance/drug rehabilitation?: No Counseling given: No Adopted: No Caregiver/support person: No Lives independently: Yes Housing: House Marital status: Number of children: 2 service: No Pets and animals: Yes Do you think of yourself as: Straight/Heterosexual Female Reproductive History: Para: 2 Physical Exam 2 Const: COMMON NORMALS: no acute distress, patient oriented x3 and healthy appearing HENMT: COMMON NORMALS: normocephalic and atraumatic HEAD & SCALP: normocephalic and atraumatic Eye: COMMON NORMALS: Equal, round and reactive pupils present and EOMs intact bilaterally PUPIL: Yes Equal, round and reactive pupils present Neck/C-Spine: COMMON NORMALS: full ROM and supple Chest: COMMONS NORMALS: normal inspection of the chest and normal palpation of entire chest wall Resp: COMMON NORMALS: normal respiratory effort, No retractions, No use of accessory muscles and clear to auscultation bilaterally AUSCULTATION: clear to auscultation bilaterally Cardio: COMMON NORMALS: regular rate, regular rhythm and No murmurs present (Cardio) RATE: regular rate RHYTHM: regular rhythm GI: COMMON NORMALS: Normal to inspection, nondistended, normoactive bowel sounds present, Soft to palpation, non-tender and no masses PALPATION: Yes Soft to palpation Extremity: COMMON NORMALS: normal to inspection and full ROM Neuro: COMMON NORMALS: patient oriented x3, moves all extremities and no focal motor deficits Psych: COMMON NORMALS: mental status grossly normal, Normal thought process present and cooperative THOUGHT PROCESS: Normal thought process present Skin: COMMON NORMALS: no rashes or lesions noted and no wounds GENERAL SKIN EXAM: no rashes or lesions noted Course Vital Signs: Vital signs: Vital Signs Temperature 97.0 F L 04/18/23 15:06 Pulse Rate 80 04/18/23 20:38 Respiratory Rate 18 04/18/23 20:43 Blood Pressure 197/91 04/18/23 20:38 Pulse Oximetry 98 04/18/23 20:38 Oxygen Delivery Me thod Room Air 04/18/23 20:38 MDM - Abdominal Pain Medical Decision Making Patient presents here with left-sided flank pain CT does show a kidney stone blood work here is normal no signs of UTI will prescribe her pain meds her pain has been controlled here she is to follow-up with urology return if worsening. Medical Records I reviewed the patient's medical records. Lab Data I reviewed the patient's lab results. 04/18/23 16:45 04/18/23 16:45 Labs/Radiology: Radiology Impressions Abdomen/Pelvis CT 04/18/23 18:54 IMPRESSION: 1. Left proximal ureter 6 mm calculus with mild hydronephrosis and hydroureter with perinephric edema, please correlate for pyelonephritis. 2. Prominent fluid in the small bowel without dilation suggestive of an enteritis. 3. Bilateral nonobstructing renal calyceal stones. 4. Bilateral renal cysts, negative for follow-up advised. 5. Hepatic steatosis. COMMENTS: Consistent with the [employer]'s Incidental Findings Committee white paper (J Am Sudeep Radiol 2018): Any incidental renal lesion less than 1 cm or classified as too small to characterize, or any incidental cystic renal lesion characterized as simple-appearing, is likely benign. No follow-up imaging is recommended for these lesions per consensus recommendations based on imaging criteria. Laboratory Results WBC 13.3 10^3/uL (4.0-10.0) H 04/18/23 16:45 RBC 5.15 10^6/uL (4.1-5.3) 04/18/23 16:45 Hgb 14.2 g/dL (11.5-15.3) 04/18/23 16:45 Hct 44.0 % (37.0-47.0) 04/18/23 16:45 MCV 85.4 fl (81-99) 04/18/23 16:45 MCH 27.6 pg (28.0-34.0) L 04/18/23 16:45 MCHC 32.3 g/dL (30.0-36.0) 04/18/23 16:45 RDW 13.8 % (12.1-15.1) 04/18/23 16:45 Plt Count 264 10^3/cmm (130-400) 04/18/23 16:45 MPV 10.2 fL (7.4-10.4) 04/18/23 16:45 Neut % (Auto) 84.6 % 04/18/23 16:45 Lymph % (Auto) 9.4 % 04/18/23 16:45 Emmons % (Auto) 5.0 % 04/18/23 16:45 Eos % (Auto) 0.3 % 04/18/23 16:45 Baso % (Auto) 0.5 % 04/18/23 16:45 Neut # (Auto) 11.22 10^3/uL (1.8-7.7) H 04/18/23 16:45 Lymph # (Auto) 1.2 10^3/uL (0.8-4.8) 04/18/23 16:45 Emmons # (Auto) 0.7 10^3/uL (0.2-0.9) 04/18/23 16:45 Eos # (Auto) 0.0 10^3/uL (0.0-0.8) 04/18/23 16:45 Baso # (Auto) 0.1 10^3/uL (0.0-0.1) 04/18/23 16:45 Nucleated RBC % (auto) 0 % 04/18/23 16:45 Nucleated RBCs # 0.0 /100WBC 04/18/23 16:45 Sodium 137 mmol/L (136-145) 04/18/23 16:45 Potassium 4.6 mmol/L (3.5-5.1) 04/18/23 16:45 Chloride 98 mmol/L (98-107) 04/18/23 16:45 Carbon Dioxide 27 mmol/L (22-29) 04/18/23 16:45 Anion Gap 16.6 (5-19) 04/18/23 16:45 BUN 28 mg/dL (6-20) H 04/18/23 16:45 Creatinine 0.8 mg/dL (0.5-0.9) 04/18/23 16:45 GFR Calculation 73.4 mL/min (90-130) L 04/18/23 16:45 Glucose 226 mg/dL (65-115) H 04/18/23 16:45 Calculated Osmolality 297 mOsm/kg (285-295) H 04/18/23 16:45 Calcium 9.9 mg/dL (8.5-10.5) 04/18/23 16:45 Total Bilirubin 0.3 mg/dL (0.15-1.2) 04/18/23 16:45 AST 13 U/L (0-32) 04/18/23 16:45 ALT 16 U/L (0-33) 04/18/23 16:45 Alkaline Phosphatase 104 U/L (35-105) 04/18/23 16:45 Total Protein 7.2 g/dL (6.6-8.7) 04/18/23 16:45 Albumin 4.4 g/dL (3.5-5.2) 04/18/23 16:45 Globulin 2.8 g/dL (1.3-4.6) 04/18/23 16:45 Lipase 39 U/L (13-60) 04/18/23 16:45 Urine Color Yellow (Yellow) 04/18/23 18:43 Urine Appearance Clear (CLEAR) 04/18/23 18:43 Urine pH 5 (5-7) 04/18/23 18:43 Ur Specific Perry 1.020 (1.005-1.030) 04/18/23 18:43 Urine Protein Neg (Negative) 04/18/23 18:43 Urine Glucose (UA) 2+ (Normal) H 04/18/23 18:43 Urine Ketones 1+ (Negative) H 04/18/23 18:43 Urine Blood 3+ (Negative) H 04/18/23 18:43 Urine Nitrate Negative (Negative) 04/18/23 18:43 Urine Bilirubin Neg (Negative) 04/18/23 18:43 Urine Urobilinogen Norm mg/dL (Negative) 04/18/23 18:43 Ur Leukocyte Esterase Negative (Negative) 04/18/23 18:43 Urine RBC 15-25 /hpf (0-2) H 04/18/23 18:43 Urine WBC None /hpf (0-5) 04/18/23 18:43 Ur Squamous Epith Cells None /hpf (0-5) 04/18/23 18:43 Amorphous Sediment Not Reportable 04/18/23 18:43 Urine Bacteria 1+ /hpf (NONE) H 04/18/23 18:43 Discharge Plan Discharge Patient Disposition: Home Clinical Impression: Kidney stone Condition: Stable Prescriptions: New hydrocodone-acetaminophen 5-325 mg tablet 1 tab PO Q6H PRN (Reason: pain) Qty: 14 0RF ondansetron 4 mg tablet,disintegrating 4 mg PO Q6H PRN (Reason: nausea and vomiting) Qty: 14 0RF Flomax 0.4 mg capsule 0.4 mg PO DAILY Qty: 4 0RF No Action magnesium 250 mg tablet 250 mg PO BEDTIME diclofenac sodium [Voltaren] 1 % gel 2 gm TOPICAL TID PRN (Reason: unknown) cholecalciferol (vitamin D3) 25 mcg (1,000 unit) tablet 25 mcg PO DAILY allopurinol 300 mg tablet 300 mg PO DAILY Qty: 90 0RF amlodipine 5 mg tablet 5 mg PO DAILY Qty: 90 0RF Hold Instructions: She holding due dizziness cyclobenzaprine 5 mg tablet 5 mg PO TID PRN (Reason: muscle spasm) Qty: 180 0RF furosemide 20 mg tablet 20 mg PO DAILY Qty: 90 0RF Neurontin 600 mg tablet 600 mg PO BID Qty: 180 0RF irbesartan 150 mg tablet 150 mg PO DAILY Qty: 90 0RF metformin 500 mg tablet extended release 24 hr 500 mg PO BID Qty: 180 0RF Contrave 8-90 mg tablet extended release 2 tab PO Q12H Qty: 360 0RF Mucinex 1,200 mg tablet extended release 12hr 1,200 mg PO Q12H Qty: 60 2RF tramadol 50 mg tablet 50 mg PO Q6H PRN (Reason: pain) Qty: 60 2RF (DME) pen needle, diabetic 33 gauge x 5/32 needle See Rx Instructions .ROUTE .MEDSUPPLY Qty: 100 5RF Rx Instructions: 1 time day fenofibrate nanocrystallized [Tricor] 145 mg tablet 145 mg PO DAILY Qty: 90 0RF Hold Instructions: She holding due ot joint pain lidocaine 5 % adhesive patch,medicated 1 patch TOPICAL Q24H Qty: 90 0RF Victoza 3-Juan 0.6 mg/0.1 mL (18 mg/3 mL) pen injector 1.8 mg SUBCUT DAILY Qty: 21 0RF aspirin 81 mg Tablet,Delayed Release (Dr/Ec) 81 mg PO DAILY Discharge Orders: Discharge ED (Routine); Ordered 04/18/23 Ordered By: Salvador Santiago Referrals: Peggy Blankenship, PASSENGER BOOKING CLERK-C [Primary Care Provider] - Discharge Diet: Advance as tolerated Discharge Activity: Resume usual activity Patient Instructions: Kidney Stones (ED), Opioid Safety Coding Level of Care Code ED Dispatch Machine Runner for Donnie Vu
[2023-04-18] MEDS: iohexol 350 mg/mL 500 mL Btl (per mL) IV (19:49)
[2023-04-18] MEDS: ketorolac 30 mg/mL INJ 15 MG IVP (20:42)
[2023-04-18] MEDS: HYDROmorphone 1 mg/mL INJ 1 mL 0.5 MG IVP (20:43)
--- NOTE | 2023-04-19 08:37 | DCPLANNER ---
Addendum entered by Roxy Hebert 04/20/23 09:54: Patient had an appointment scheduled with urology - patient cancelled appointment Original Note: manager helpdesk had message to schedule a follow up appointment for patient with appointment information. manager helpdesk sent patients information to the front office staff at urology. Patients information will be printed and reviewed. Clinic will call patient with appointment information.
== END 2023-04-18 21:17 | disposition home or self-care (01) ==
PROVIDERS: Physician Assistant; Emergency Provider Emergency Medicine; PCP Nurse Practitioner
DX: N13.2 Hydronephrosis with renal and ureteral calculous obstruction (principal); Z79.82 Long term (current) use of aspirin; Z79.84 Long term (current) use of oral hypoglycemic drugs; Z87.891 Personal history of nicotine dependence; E11.9 Type 2 diabetes mellitus without complications; I10 Essential (primary) hypertension; E78.2 Mixed hyperlipidemia
CPT/HCPCS: 36415; 74177; 80053; 81001; 83690; 85025; 87086; 96374; 96375; 96376; 99285; J1170; J1885; J2270; J2405; Q9967

== ENCOUNTER → 2023-04-29 08:15 | Outpatient (BNVA) | payer MEDICARE, SELFPAY | PROVIDERS: PCP Nurse Practitioner; Visit Provider Nurse Practitioner | DX: R39.9 Unspecified symptoms and signs involving the genitourinary system (principal); N20.0 Calculus of kidney | CPT/HCPCS: 81003; 85025 ==

== ENCOUNTER → 2023-07-06 10:01 | Outpatient (BNVA) | payer MEDICARE, SELFPAY | PROVIDERS: PCP Nurse Practitioner; Visit Provider Nurse Practitioner | DX: E11.65 Type 2 diabetes mellitus with hyperglycemia (principal); Z79.4 Long term (current) use of insulin | CPT/HCPCS: 80053; 80061; 83036; 84443 ==

== ENCOUNTER → 2023-08-24 10:56 | Outpatient (BNVA) | payer MEDICARE, SELFPAY | PROVIDERS: PCP Nurse Practitioner; Visit Provider Nurse Practitioner | DX: E11.65 Type 2 diabetes mellitus with hyperglycemia (principal); Z79.4 Long term (current) use of insulin | CPT/HCPCS: 80053; 80061; 83036 ==

== ENCOUNTER → 2023-11-16 14:21 | Outpatient (BNVA) | payer MEDICARE, SELFPAY | PROVIDERS: PCP Nurse Practitioner; Visit Provider Nurse Practitioner | DX: M1A.9XX0 Chronic gout, unspecified, without tophus (tophi) (principal); M54.16 Radiculopathy, lumbar region; I10 Essential (primary) hypertension; E11.65 Type 2 diabetes mellitus with hyperglycemia; Z79.4 Long term (current) use of insulin; E66.01 Morbid (severe) obesity due to excess calories | CPT/HCPCS: 81000 ==

== ENCOUNTER → 2024-02-09 11:02 | Outpatient (BNVA) | payer MEDICARE, SELFPAY | PROVIDERS: PCP Nurse Practitioner; Visit Provider Nurse Practitioner | DX: M1A.9XX0 Chronic gout, unspecified, without tophus (tophi) (principal); M54.16 Radiculopathy, lumbar region; I10 Essential (primary) hypertension; E11.65 Type 2 diabetes mellitus with hyperglycemia; Z79.4 Long term (current) use of insulin; E66.01 Morbid (severe) obesity due to excess calories; E11.9 Type 2 diabetes mellitus without complications | CPT/HCPCS: 80053; 80061; 82043; 82607; 83036 ==

== ENCOUNTER 2024-03-07 09:45 | Outpatient (CLI) | payer MEDICARE, SELFPAY ==
--- NOTE | 2024-03-07 10:00 | MM_ITS ---
WS: [id number] BILATERAL SCREENING DIGITAL TOMOSYNTHESIS MAMMOGRAM WITH CAD HISTORY: Z12.31 - Encounter for screening mammogram for malignant ... COMPARISON: 03/02/2023 and 08/30/2022 Bilateral CC and MLO views with tomosynthesis and synthetic mammography submitted. Computer aided det ection analyzed. Breast composition: There are scattered areas of fibroglandular density. No suspicious masses, microc alcifications or architectural distortion. Bilateral nodules are stable. Biopsy clip superior LEFT br east is stable. No adjacent mass or calcification. MM/[place] [id number] IMPRESSION: BI-RADS: 2-Benign FOLLOW UP: 1 Year Follow-up
== END 2024-03-07 09:46 | disposition home or self-care (01) ==
LOC: RAD 09:46
PROVIDERS: PCP Nurse Practitioner; Visit Provider Nurse Practitioner
DX: Z12.31 Encounter for screening mammogram for malignant neoplasm of breast (principal); R92.323 Mammographic fibroglandular density, bilateral breasts
CPT/HCPCS: 77063; 77067

== ENCOUNTER → 2024-04-26 11:09 | Outpatient (BNVA) | payer MEDICARE, SELFPAY | PROVIDERS: PCP Nurse Practitioner; Visit Provider Nurse Practitioner | DX: E11.65 Type 2 diabetes mellitus with hyperglycemia (principal); Z79.4 Long term (current) use of insulin; E11.9 Type 2 diabetes mellitus without complications; Z79.899 Other long term (current) drug therapy | CPT/HCPCS: 80053; 80061; 82043; 82607; 83036 ==

== ENCOUNTER → 2024-07-12 11:15 | Outpatient (BNVA) | payer MEDICARE, SELFPAY | PROVIDERS: PCP Nurse Practitioner; Visit Provider Nurse Practitioner | DX: E11.9 Type 2 diabetes mellitus without complications (principal) | CPT/HCPCS: 80053; 83036 ==

== ENCOUNTER → 2024-10-02 15:39 | Outpatient (BNVA) | payer MEDICARE, SELFPAY | PROVIDERS: PCP Nurse Practitioner; Visit Provider Nurse Practitioner | DX: E11.9 Type 2 diabetes mellitus without complications (principal) | CPT/HCPCS: 80053; 80061; 82607; 83036 ==

== ENCOUNTER → 2024-12-11 13:40 | Outpatient (BNVA) | payer MEDICARE, SELFPAY | PROVIDERS: PCP Nurse Practitioner; Visit Provider Nurse Practitioner | DX: E11.9 Type 2 diabetes mellitus without complications (principal) | CPT/HCPCS: 80053; 83036 ==

== ENCOUNTER → 2025-03-05 09:59 | Outpatient (BNVA) | payer MEDICARE, SELFPAY | PROVIDERS: PCP Nurse Practitioner; Visit Provider Nurse Practitioner | DX: M19.072 Primary osteoarthritis, left ankle and foot (principal); E11.65 Type 2 diabetes mellitus with hyperglycemia; E78.2 Mixed hyperlipidemia; M77.32 Calcaneal spur, left foot; R60.0 Localized edema | CPT/HCPCS: 73630; 80053; 80061; 82043; 83036; 84443 ==

== ENCOUNTER 2025-03-13 07:53 | Outpatient (CLI) | payer MEDICARE, SELFPAY ==
--- NOTE | 2025-03-13 07:54 | MM_ITS ---
WS: [id number] BILATERAL SCREENING DIGITAL TOMOSYNTHESIS MAMMOGRAM WITH CAD HISTORY: Z12.31 - Encounter for screening mammogram for malignant ... COMPARISON: 08/30/2022, 03/02/2023 Bilateral CC and MLO views with tomosynthesis and synthetic mammography submitted. Computer aided detection analyzed. Breast composition: There are scattered areas of fibroglandular density. No suspicious masses, microcalcifications or architectural distortion. Biopsy clip upper outer quadrant LEFT breast. Benign calcifications. MM/MM scr BI tomosynthesis [id number] IMPRESSION: BI-RADS: 2 - Benign. FOLLOW UP: 1 Year Follow-up
== END 2025-03-13 07:54 | disposition home or self-care (01) ==
PROVIDERS: PCP Nurse Practitioner; Visit Provider Nurse Practitioner
DX: Z12.31 Encounter for screening mammogram for malignant neoplasm of breast (principal); R92.323 Mammographic fibroglandular density, bilateral breasts; R92.1 Mammographic calcification found on diagnostic imaging of breast
CPT/HCPCS: 77063; 77067

== ENCOUNTER → 2025-06-04 09:54 | Outpatient (BNVA) | payer MEDICARE, SELFPAY | PROVIDERS: PCP Nurse Practitioner; Visit Provider Nurse Practitioner | DX: E11.65 Type 2 diabetes mellitus with hyperglycemia (principal); E11.9 Type 2 diabetes mellitus without complications | CPT/HCPCS: 80053; 80061; 83036 ==

== ENCOUNTER → 2025-09-25 11:35 | Outpatient (BNVA) | payer MEDICARE, SELFPAY | PROVIDERS: PCP Nurse Practitioner; Visit Provider Nurse Practitioner | DX: E11.65 Type 2 diabetes mellitus with hyperglycemia (principal); I10 Essential (primary) hypertension | CPT/HCPCS: 80053; 83036 ==